=== PATIENT | female | born 1960 | race Caucasian/White ===

== ENCOUNTER 2023-07-25 09:00 | Outpatient (OUT) | payer MEDICARE, SELFPAY ==
[2023-07-25 09:44] LABS: Basophils Absolute Auto 0.1 10^3/uL (0.0-0.1); Basophils Percent Auto 1.1 % (0.2-2.0); Eosinophils Absolute Auto 0.3 10^3/uL (0.0-0.7); Hematocrit 48.6 % (36.0-48.0); Immature Granulocytes Abs Auto 0.02 10^3/uL (0.00-0.03); Immature Granulocytes Pct Auto 0.3 % (0.0-0.5); Lymphocytes Absolute Auto 1.4 10^3/uL (1.2-3.8); Lymphocytes Percent Auto 22.5 % (20.5-60.0); Mean Corpuscular HGB Conc 32.9 g/dL (29.9-35.2); Mean Corpuscular Hemoglobin 30.8 pg (26.7-34.0); Mean Corpuscular Volume 93.6 fL (81.0-99.0); Mean Platelet Volume 10.6 fL (9.5-13.5); Monocytes Absolute Auto 0.5 10^3/uL (0.3-0.8); Monocytes Percent Auto 8.1 % (1.7-12.0); Neutrophils Absolute Auto 3.9 10^3/uL (1.4-6.5); Platelet Count 196 10^3/uL (150-450); Red Blood Count 5.19 10^6/uL (4.20-5.40); Red Cell Distribution Width 13.2 % (11.0-15.0); White Blood Count 6.2 10^3/uL (4.0-11.0)
[2023-07-25 10:23] LABS: Free T4 0.98 ng/dL (0.76-1.46)
[2023-07-25 10:25] LABS: Alanine Aminotransferase 22 U/L (14-59); Albumin Globulin Ratio 1.1; Albumin Level 3.8 g/dL (3.4-5.0); Alkaline Phosphatase 66 U/L (46-116); Anion Gap 12.5; Aspartate Amino Transferase 20 U/L (15-37); BUN Creatinine Ratio 13.6; Bilirubin Total 1.1 mg/dL (0.2-1.0); Calcium 9.3 mg/dL (8.5-10.1); Carbon Dioxide 31.2 mmol/L (21.0-32.0); Chloride 103 mmol/L (98-107); Chol HDL Ratio 1.7; Cholesterol 241 mg/dL (<=200); Estimated GFR (African America >60 (>=60); Estimated GFR (Non-African Ame >60 (>=60); Globulin 3.5 g/dL; Glucose 130 mg/dL (74-106); HDL Cholesterol 141 mg/dL (40-60); Potassium 4.7 mmol/L (3.5-5.1); Sodium 142 mmol/L (136-145); Thyroid Stimulating Hormone 0.756 uIU/mL (0.358-3.740); Total Protein 7.3 g/dL (6.4-8.2); Triglycerides 59 mg/dL (<=150); VLDL CHOLESTEROL 11.8 mg/dL
== END 2023-07-25 09:01 | disposition home or self-care (01) ==
PROVIDERS: PCP Family Medicine; Visit Provider Family Medicine
DX: Z00.00 Encounter for general adult medical examination without abnormal findings (principal); E03.9 Hypothyroidism, unspecified
CPT/HCPCS: 36415; 80053; 80061; 84439; 84443; 85025

== ENCOUNTER 2024-08-20 11:31 | Outpatient (OUT) | payer MEDICARE, SELFPAY ==
--- OUTSIDE RECORDS SUMMARY | 2024-08-20 11:48 | XMS_ITS | CCD ---
Author Organization [facility] [employer] Care Team Providers Care Tag Stringer Name Role Phone LANDY, ANYI Admitting Unavailable HOUSE, ANYI Attending Unavailable HOUSE, ANYI Primary Care Unavailable HOUSE, ANYI Consulting Unavailable PHUONG DENG Primary Care Physician Edwin James Unavailable Phuong Deng Unavailable Medications Current Medications Medication Drug Class(es) Dates Sig (Normalized) Sig (Original) busPIRone hydrochloride 10 mg oral tablet (11 sources) Start: 04-22-2024 take 1 tablet by mouth twice daily Buspirone 10 mg tablet Active 10 MG PO Twice daily 180 April 22, 2024 12:00am Start: 12-10-2023 End: 04-22-2024 take 2 tablets by mouth twice daily Buspirone 5 mg tablet Discontinued 10 MG PO Twice daily 60 January 23, 2024 10:22am April 22, 2024 3:25pm Start: 03-20-2021 take 2 tablets by mo [facility] twice daily busPIRone HCl 5 MG 2 tablets Oral two times daily for 0 days *Pick strength-form from [employer] for eRX* May, Active Start: 03-20-2021 take 1 tablet by christiano three times daily BuSpar 5 MG 1 tablet Orally tid for 90 day(s) Mar, Active ibuprofen 800 mg oral tablet (9 sources) Nonsteroidal Anti-inflammatory Drug Start: 01-30-2021 End: 07-26-2024 take 1 tablet by mouth three times daily as needed for pain Ibuprofen 800 mg tablet Active 800 MG PO Three times daily as needed for Pain 90 July 26, 2024 3:28pm Ibuprofen 800 MG 1 Orally every 8 hrs prn for 90 days Active Ibuprofen Active levothyroxine sodium 0.075 mg oral tablet (11 sources) l-Thyroxine Start: 05-27-2022 take 1 tablet by mouth once daily Levothyroxine 75mcg levothyroxine 75mcg, 1 (one) Tablet daily on an empty stomach # 0, 05/27/2022, No Refill. Active oral daily on an empty stomach *Reorder from [employer] for eRx and Interaction Alerts* May, Active Start: 11-30-2019 End: 07-26-2024 take 1 tablet by mouth once daily Levothyroxine (Synthroid) 75 mcg tablet Active 75 MCG PO Daily July 26, 2024 3:27pm Levothyroxine So dium Active Completed/Discontinued Medications Medication Drug Class(es) Dates Sig (Normalized) Sig (Original) azithromycin 250 mg oral tablet (1 source) Macrolide Antimicrobial Start: 05-14-2024 End: 07-26-2024 Azithromycin 250 mg tablet Discontinued 0 PO daily 6 May 14, 2024 12:00am July 26, 2024 3:13pm Take 2 on day 1 and then take 1 for the next 4 days (days 2-5) LORazepam 0.5 mg oral tablet (7 sources) Benzodiazepine Start: 01-30-2021 End: 05-14-2024 Lorazepam (Ativan) 0.5 mg Tablet Discontinued 0.5 MG PO As Directed January 29, 2021 11:00pm May 14, 2024 10:24am Start: 11-30-2019 take 0.25 mg by mout h once daily as needed for anxiety Ativan 0.5 mg Tab 0.25 mg = 0.5 tab(s), Oral, Daily, PRN as needed for anxiety, Refills(s) 0 Start Date: 11/30/19 Status: Ordered Ativan Active methylPREDNISolone 4 mg oral tablet (1 source) Corticosteroid Start: 05-14-2024 End: 07-26-2024 take 1 tablet by mouth once Methylprednisolone (Medrol (Greyson)) 4 mg tablets,dose pack Discontinued 0 PO per package directions May 14, 2024 12:00am July 26, 2024 3:13pm PO PER PKG DIR temazepam 15 mg oral capsule (2 sources) Benzodiazepine Start: 01-29-2024 End: 05-14-2024 take 1 capsule by mouth once daily at bedtime Temazepam 15 mg capsule Discontinued 15 MG PO Daily at bedtime January 28, 2024 11:00pm May 14, 2024 10:24am [employer] capsule at bedtime as needed Orally Once a day; Note: Source Status: Start; Refills: 0; Qty: 90 Capsule; Provider: Giovanni Baca ( ) Start: 09-30-2022 take 1 capsule by [facility] every twenty-four hours Temazepam 15 MG 1 capsule at bedtime as needed Orally Once a day for 90 days Sep, Active Problems Problem Classification Problem Date Documented Date Episodic/Chronic Anxiety disorders (1 source) Anxiety disorder, unspecified; Translations: [ANXIETY DISORDER UNSPECIFIED] Onset: 02-26-2019 Chronic Esophageal disorders (13 sources) Achalasia of cardia; Translations: [Achalasia] Onset: 02-26-2019 Resolved: 06-18-2021 Episodic Osteoarthritis (1 source) Unspecified osteoarthritis, unspecified site; Translations: [UNSPECIFIED OSTEOARTHRITIS UNS SITE] Onset: 02-26-2019 Chronic Other disorders of stomach and duodenum (7 sources) Other diseases of stomach and duodenum; Translations: [Retained food in stomach] Episodic Other lower respiratory disease (2 sources) Cough; Translations: [Cough] 05-14-2024 Episodic Other screening for suspected conditions (not mental disorders or infectious disease) (3 sources) Encounter for screening mammogram for malignant neoplasm of breast; Translations: [Patient encounter status] Episodic Other upper respiratory infections (4 sources) Chronic sinusitis; Translations: [Chronic sinusitis, unspecified] 05-14-2024 Chronic Residual codes; unclassified (2 sources) Normal body mass index; Translations: [Body mass index (BMI) 22.0-22.9, adult] Episodic Residual codes; unclassified (1 source) Menopause present; Translations: [Asymptomatic menopausal state] 07-26-2024 Episodic Residual codes; unclassified (1 source) Asymptomatic menopausal state; Translations: [Symptomatic menopausal or female climacteric states] 07-26-2024 Episodic Spondylosis; intervertebral disc disorders; other back problems (2 sources) Left side sciatica; Translations: [Sciatica, left side] Episodic Substance-related disorders (2 sources) Tobacco user; Translations: [Nicotine dependence, unspecified, uncomplicated] Chronic Thyroid disorders (8 sources) Acquired hypothyroidism; Translations: [Hypothyroidism, unspecified] Chronic Urinary tract infections (4 sources) Urinary tract infection, site not specified; Translations: [UTI SITE NOT SPECIFIED] Onset: 02-19-2019 Episodic Viral infection (2 sources) Disease caused by 2019-nCoV; Translations: [COVID-19] Results Test Name Value Interpretation Reference Range Facility Coding Summary.on 11-01-2021 Coding Summary. [id number] YHm1wKa+PGhlYWQ+PE1 LPYYrA35liYFcoZ1ZR0 vBIO9LIIHCUAKIPI0DU A7ngFQ4XNskK3CtvqKv IfeluLArCG64FQd7ZAO 4tJkbQVfnpT2xfLWxT7 k2AwXdIR08sM98YTxsZ LEeEkG4EfPgpnzutDNn Q7jkWvSgbSRyZog+PHR hYmxlIHdpZHRoPScxMD BqChBqcRynIZ7oSw0eT GVyLWNvbGxhcHNlOiBj e8kwCCGqFTvzAX4xmNr nG2VekNC7DEWrd6y2No 48dHI+TMCwTOI1hRzzD Wlfz787BwNiu0qbIVU4 oIIrSDzeYOG2W42qy1R 7BIDsBYCyOCW5qAB8iV 8gvPfzlwttZ8OjfOPpH jJ5YXR1vDCsoV9ldCab vpzkvS1qSip+T50JRO6 OXDTIWS4ZTfx3X9QoRh wvdHI+ED54EORyNP67h LRrkYNxu9zdrQy2RuQv RQDqETG5oTcpDVzbf5T vVLDiZ52geHZey2V8IF XxqUtgaIRaZyLvlXH9l Q5kLHaqihkja8uwjhqj Otmwg9jwnb47mY59Z97 hKEpsVGXoZMZ7LTKvZB KrrMuemr7lsA0vLa1+I Hzid4urv2hznQj3RuLp ZZMdglZswVxvJFZ8f5J yUl71C6DaeUssg2FuTu c0kz28hSFhs7U2uHN3H GomGESdpJ9mROphTmK1 ZEZaVoGhpP19fINsVHi kIn9rfBnxwOxiYW2lPO VkosqlQOKnwQ4wDEOjk LWuvRnbMX2wWSMymkze a114IwVwWBA2AGBljVL dN6PqxA4qPbObJRUyPM YxI9KxqPHsDJgzR159Q HeaZvD2LDVtzeLqA5Rc WWOnhAhfEuJ7m8M2Rx2 Ba5TsesbxUIQ4PKzjLP V5TgE6QoOpTyG8D2ZlE jz9GRXchWciPP5xC4Rh AHAwpjundtxptPN1HUZ bDISzfE84nDTjMWvdDu 0kw0N8e997YEPdMZGdb Z86Za2jgKlwMEFxxSQU sF9dzcbvv9lybnriSdP jOMPtFMw2IKn2OEBtbV vzCsCzWCL1VgA1NEU3u MYxhZ2ufUgjxcofaB8n Oyc+Q27hkN8zJFE4EAY 2jikaTEWoefUpDE54OB 94G4XnSocfzZJftZJ+P RDvpeGlvLfpXK7tTnEr d8oso2JzLDuqE9RmTZJ eCCahTgr7ICUeLKY8aY K2uB9sUPOcIVkyl6W1b CD6A3LttqLmco2kq3ll ZBVhRDecX41whIGiv6K 5VLMosEY1EVLbkQvnZs VsvA02Agq+PGNvbGdyb 1NoNxerz6yea7tntWe4 IjMwJSIgdmFsaWduPSJ 7t4CnPx81Z50xHVgaYB RoPSIxNSUiIHZhbGlnb n5bmF7tAt1+PGNvbCB3 gXO2gG7uDUMwEiU5CAw jG048ZwHclCZbXczwa8 vmr1ejvVq7DxVzEUAht dErqMxhBBT9u1TcDg87 F98gWGeuFJFiCOTzQKH cBJNjbTziel7mtR4aVk 8+UV2xh1dygw50rA92n HI+JKRnLJD7hAeyDThc ALZpzZ8gFWisEtL8PRX vCsXbtC19tTHvWAepFc 6skQgsaBqtKF8iVCSnr jqaz020QsAnx2kkUIBo yIPlQOdnBBC8X12wt2D 3KUZqBJAdMDW9oAJ9lQ 1hbGlnbjogbGVmdDsgd yAsuForWFneFSjzF335 IHRvcDsnPlBhdGllbnQ uEiQxAGw9Z0DnGyc5LH OmzFujTY8uvKUlDWhjD d9roSrsnSesWG6rOOSf qrnky372EjGtt8odNQO aySPtVHufBRR2L06bo6 T5ZXUuZVStOZA6dIZ2r P7bxLkspomwzDJupJry iaPwuPkzURgiDXycK33 6IHRvcDsnPkJpcnRoIE OjsVD9RV39YW34tOExl 3A1gWI3S9NqXFBwczho iaffeCG6ZRTwVKSyhJ9 5Gf0hyKbdXn0uSFZkLN W6HTJrfWUpH8NmyC2kC oHdAUJjTYCcZ2RtiDVz SYadS326OVgaHwH4CFS jusOaU4YiGOUiaHdySt R6n2N7Na0ZT8C7KF93U M05pDXmk0N8nQH2B1Iq NCQmsandvpozjRD2SIU zAGTvyE59Fc6lbEtkQb 2cXBAeSQV1OILmoBNwH 2SgvC7mIzKqPJWvFLEn W1GzrXXpLKcxE809LEw tSxL2GGNwmeLdA4ZbHJ CdpLdyVhD5v2V3Eq8DW Sj5QX06HQ35qLUgo3F2 cVN0N6JvZPGpxyktujg hxZR7KAGfTORdtJ35La 6oxVlwWa6jTZUpCOA9A TNfcZDtQ0QqyB6mDwGg EUQzQGNfU8QotTZySJa cK563HZhaEwJ6XYQtst UaH6ViNTQvgLzbEaG0p 5N4Lh6ITRZtCR00VYL7 fWU0TM84TC13X4SzTep vdGFibGU+PHRhYmxlIH dpZHRoPScxMDAlJyBzd ZeyIK5aLt9zZXSiWPFv cVcbtISxJiWoj6etCLS eGBzbQV4umFkpK1FnnC X9JMUju3o1Vg35V90qJ 3JvdXA+HICrfDC3nJX9 hM0rHcDsQgJ5KLzyX24 1NfAwtWLgRpqjr1rul4 mybBq2QjL7PBQbvfFgl KvoCVY9n5AzNl65I39y IHdpZHRoPSIxNSUiIHZ mpOdmiu4pwS2vRg6+PG GdzPZ2fEB6qU4qRfZiY dP3GNudP412SyBmqOLk Vtdmp3ubq6geuAg2JeM uIBGoeaPkkMrjKSQ5h1 BbGo08U1VtiHmup6IqD yp3al46uBCkw0W6gPD9 U8WxLRJxtyxbdNFagMi cAN9zJKGnrucdSTQesJ 2bNEAvC5f6GyRmWxG7I VbyS7EeipP6IMJmvFYw VFisNPC4U39bf4J8WMB eDXPtRLL6wZS9yZ2mhK lnbjogbGVmdDsgdmVyd KsyVUkyUNupF145QNJi aUbqQAGrnC8dIVOpxPN itPghMC6wNOUhdujeHa JRF5aYZnbiH7ELHVi3P 0XsNrh0HEBxbUqmNR9x eCDcZZeaJs2zwUeozSo tQV7mBLKktrvtQQIyhZ 4uYXHvpNPvtIonAQ6kP AAboelyy307GwInKJH4 JVMugMHfA9TjmR2vVxP jOPDcYUAeC6HiiKWpVY yiV446ZSctXeM5UEIjp hCpN8HdUQKpkSdzOtI8 k0K1Nl4eFR2tDG1oWFD 1QX87JN53vCIkb8K0xM P1R5DhIGAtjdyzqfmpa RS6WMHrWOUiwQ87rITp PBooLj0wt5A1o867KSM aZHQniJ71Mq3kyUfzQX OhvOIScO3oqnagc8pno qusPjSmADRvYJm8CYx3 OJAdzWkeNzJiMTW6NuX 2NQN5pYJhrK2tbEheyd tqrJ1vZcx+NjMgWWVhc fR2P9ZrBfw8WIKlzFed FA1gtNOcABzrXe7ioDe wcPtjMG5bZTOemhjpCP PgvU1fVUNlaVBylDdrB R9kQXFyedlzh006VkHp LHV2JFHkuEZqJ1XpwE7 pVzRoHMYwJFQaR4LdfO YvIBnvW593RQvcDmV6X KCxxwNyG2MqKNVdoBuf OnP2y5D4Dm5LFU3ewJU 3O8XyBny1KZPmtQazFW 2asFKcDCjvOe4epAjbm WxyDH6wOEMdfudnJFAu cZ5uENOosFUvcMqcOS8 oBLNzhjcds505BhYuUD L0ZSOgfITfL7LarR5fB qHkAYWhOTRoB6MdrTXf QNctY180SRtoFdI3FHA unoMaJ5UrKENbuSzcSl L5r1T9Iq5XjLGdTZCbY F70VV36TI93F2YvEcpj dGFibGU+PHRhYmxlIHd pZHRoPScxMDAlJyBzdH wrVW4xPx8fLTYoQQKlm XqaaVRzGiTqg6uoWHIo AIqhFI7snGtkQ3EfkMQ 4GHSle7n7Jr99O53pC3 JvdXA+TRIffNU1bYG4s Q0vOpKzSjY5TAkgL955 QbCovKPoKflra1dju0x vrPq9ToPzBEUnoaAehY qaDBT3j0WeBq44X94dU HdpZHRoPSIyMCUiIHZh pYygae6vcE6yXr4+PGN mzDH0hMI4gN7dOoSiNz U3ZYmxG893VoXpxDBiR zczJ20bA2KwkDR+PHRy Xpd5EXAqbEfiSJ1nuFG oXAqqIk1uEKJ4OsSwDz HkQFpkL5VxDOJfwjwua djgbIR3RTGlALAozO33 Qq1bdQmxHi0lOWZiXPC 9QNMneLFpF6VlcK9bIk ZiRQWtJHVmN9JwmJDfS XxqC019POqvOkL3KEGt owEgE4ViHMJxnSibMnB 1s5H1Bg7HoXpnbMNvZN 0fGyJjGKh8Q2JlAtb7N TYfyHgpBA7uiAZyOVrq Rk3bdXuepTwsPQ7tZVX zxtcef692StYja9ftVM MemFQuOSneKZP6W38kw 2B7TGHlYCKjECW6gWO0 uT2eqNmzecuvdNYlqZu gdmVydGljYWwtYWxpZ2 96IBBgtYspWhUTSnk3P 5EjMmo0PQZgbLdpSE1e zTRvLEicNo3nlPmbeLk iSZ7aSJQkfxoho385Ly Wfj0wmOREerZEzYSxnF YT9G12zj9P4HZFuRLHq WPM4aIS5wE0ooVavuot gbGVmdDsgdmVydGljYW ryVXpzL473SKNmlYkwI j9FUcd2B2AgGmh5SJIx jBmdIB6kwLTeHTkkDx8 fzLbrcEjiOQ3sXUDaeo her855LsExl7gxLZTqz GMfOCkzTWK5Z25dm0S4 KDQsSBUnBBL0rFT2kF2 hbGlnbjogbGVmdDsgdm SthLdpSCtkJEvvA377S HRvcDsnPlBheWVyOjwv dGQ+NK16nt84O4WdSfk mBad5WTVxXWS3aAM1dU 3pNTRuAMfjo1V5aPI7H 5NfbwYnjg8nr4ptCAAw ZTog (more content not included)... Normal [facility] MA Mamm Screen w/CAD if perf and 3D Bilon 10-25-2021 MA Mamm Screen w/CAD if perf and 3D Juan Carlos Exam Date/Time: 10/22/2021 07:44 EDT Reason for Exam: SCREENING Report IMPRESSION: BIRADS 1 NEGATIVE, NORMAL INTERVAL FOLLOW-UP.12 MONTH RECALL. CLINICAL HISTORY: SCREENING. COMPARISON: 09/28/2014. COMMENT: Routine views and tomosynthesis views of both breasts were obtained. The breasts are heterogeneously dense, which may obscure small masses. No dominant breast mass nor neoplastic calcifications are noted. There has been no significant change when compared to the prior exam. The examination was reviewed with Computer Aided Detection. Breast Density: Yes Mammography is very important to your health. The current [employer] and National [employer] Network guidelines recommends annual mammography beginning at age 40. This facility utilizes a reminder system to ensure all patients receive reminder notifications at the appropriate time based on the recommendations of this exam. Board Certified Radiologists. Accredited by the ACR and FDA. FINAL REPORT Dictated: 10/25/2021 2:32 pm Tobias Dolan M.D. Signed (Electronic Signature): 10/25/2021 2:32 pm Signed by: Tobias Dolan M.D. Transcribed by: KENNY Technologist: [facility] Assessment: BI-RADS Category 1-Negative Recommendation: Normal interval follow-up Normal [facility] Auto Diffon 10-22-2021 Basophils/100 WBC (Bld) 1.2 % Normal 0.0-2.0 [facility] Comment on above: Order Comment: Order Added by Discern Expert. Performed By: #### 2 [id number], 0980717, 2001602, 7452041, 0811865, 2484522, [id number] #### [facility] [address] [place] [address] 24684 Basophils/Leukocytes Auto (Bld) [Pure # fraction] 0.1 E9/L Normal 0.0-0.2 [facility] Comment on above: Order Comment: Order Added by Discern Expert. Performed By: #### 2 728162, 8947193, 2185039, 6805558, 7836967, 1306093, [id number] #### [facility] [address] [place] [address] 42024 Eosinophils/100 WBC (Bld) 7.1 % Normal 0.0-8.0 [facility] Comment on above: Order Comment: Order Added by David Expert. Performed By: #### 2 578642, 4992815, 0883229, 5694636, 1799962, 3162595, [id number] #### [facility] [address] [place] [address] 36915 Eosinophils/Leukocyte s Auto (Bld) [Pure # fraction] 0.5 E9/L Normal 0.0-0.5 [facility] Comment on above: Order Comment: Order Added by Discern Expert. Performed By: #### 2 230641, 6705875, 4850439, 9747048, 2056338, 1116704, 58939059 #### [facility] [address] [place] [address] 50392 Lymphocytes/100 WBC (Bld) 28.0 % Normal 14.0-50.0 [facility] Comment on above: Order Comment: Order Added by Discern Expert. Performed By: #### 2 121969, 5557716, 6891974, 3406008, 4893968, 5468709, 74282678 #### [facility] [address] [place] [address] 63096 Lymphocytes/Leukocyte s Auto (Bld) [Pure # fraction] 1.8 E9/L Normal 1.0-4.0 [facility] Comment on above: Order Comment: Order Added by Discern Expert. Performed By: #### 2 463489, 8200720, 1346543, 1051574, 8720483, 8273147, 51082493 #### [facility] [address] [place] [address] Monocytes/100 WBC (Bld) 9.0 % Normal 4.0-14.0 [facility] Comment on above: Order Comment: Order Added by Discern Expert. Performed By: #### 2 180700, 5512949, 1107137, 5805102, 0220258, 4678728, 55089630 #### [facility] [address] [place] [address]307 Monocytes/Leukocytes Auto (Bld) [Pure # fraction] 0.6 E9/L Normal 0.2-1.0 [facility] Comment on above: Order Comment: Order Added by Discern Expert. Performed By: #### 2 827192, 9051568, 7250406, 7400426, 1493799, 1416107, 52478830 #### [facility] [address] [place] [address] 10355 Neutrophils/100 WBC (Bld) 54.7 % Normal 36.0-75.0 [facility] Comment on above: Order Comment: Order Added by Discern Expert. Performed By: #### 2 284051, 0315160, 5589652, 6601458, 7584078, 1281720, 48711134 #### [facility] [address] [place] [address] 45119 Neutrophils/Leukocyte s Auto (Bld) [Pure # fraction] 3.5 E9/L Normal 2.0-7.5 [facility] Comment on above: Order Comment: Order Added by Discern Expert. Performed By: #### 2 277629, 5210375, 7070181, 0838763, 9278251, 4513070, [id number] #### [facility] [address] [place] [address] 61283 CBC w/ Auto Diffon 2 Erythrocyte distribution width (RBC) [Ratio] 13.8 % Normal 10.9-14.2 [facility] Comment on above: Performed By: #### 2 561980, 2191581, 3784958, 1542085, 5907422, 9543169, 96592676 #### [facility] [address] [place] [address] Hematocrit (Bld) [Volume fraction] 44.0 % Normal 34.0-46.0 [facility] Comment on above: Performed By: #### 2 055959, 4013707, 9927421, 8749586, 1561788, 2183749, 04775646 #### [facility] [address] [place] [address] Hemoglobin (Bld) [Mass/Vol] 15.2 g/dL Normal 12.0-16.0 [facility] Comment on above: Performed By: #### 2 723771, 8076195, 5497432, 5777575, 7578240, 6944889, 79501201 #### [facility] [address] [place] [address] MCH (RBC) [Entitic mass] 31.2 pg Normal 27.0-34.0 [facility] Comment on above: Performed By: #### 2 550112, 4890569, 3255846, 9704746, 0828810, 6020908, 30671334 #### [facility] [address] [place] [address] 19141 MCHC (RBC) [Mass/Vol] 34.6 g/dL Normal 31.4-36.0 [facility] Comment on above: Performed By: #### 2 515606, 5526638, 3313081, 4374114, 0569763, 4849431, 80461789 #### [facility] [address] [place] [address] MCV (RBC) [Entitic vol] 90.2 fL Normal 80.0-100.0 [facility] Comment on above: Performed By: #### 2 755450, 1289992, 6728201, 9997397, 7765887, 6374398, 47448544 #### [facility] [address] [place] [address] Platelet mean volume (Bld) [Entitic vol] 9.2 fL Normal 6.4-10.8 [facility] Comment on above: Performed By: #### 2 138507, 2707734, 1868279, 6724528, 9198155, 9409492, 85033923 #### [facility] [address] [place] [address] Platelets (Bld) [#/Vol] 182.0 E9/L Normal 150.0-500.0 [facility] Comment on above: Performed By: #### 2 727957, 0042011, 7826215, 8022880, 0467336, 1363579, 17907285 #### [facility] [address] [place] [address] RBC (Bld) [#/Vol] 4.9 E12/L Normal 4.3-5.9 [facility] Comment on above: Performed By: #### 2 008701, 8438941, 6340305, 3050738, 8551754, 6639437, 67507640 #### [facility] [address] [place] [address] WBC corrected for nucl RBC Auto (Bld) [#/Vol] 6.4 E9/L Normal 4.0-11.0 [facility] Comment on above: Performed By: #### 2 145342, 0425063, 7922896, 0553137, 0882388, 8460637, 80764949 #### [facility] [address] [place] [address] CHEMISTRYOrdered By: SYSTEM SYSTEM on 10-22-2021 Albumin [Mass/Vol] 4.1 g/dL Normal 3.3 - 5.0 gm/dL [facility] Albumin/Globulin [Mass ratio] 1.5 {ratio} Normal 1.1 - 2.2 [facility] ALP [Catalytic activity/Vol] 55 [iU]/d Normal 21 - 98 Int._Unit/L [facility] ALT No additional P-5'-P [Catalytic activity/Vol] 15 [iU]/d Normal 6 - 46 Int._Unit/L [facility] Anion gap [Moles/Vol] 15 mmol/L Normal 6 - 16 mEq/L [facility] AST [Catalytic activity/Vol] 17 [iU]/d Normal 5 - 43 Int._Unit/L [facility] Bilirubin [Mass/Vol] 1.3 mg/dL High 0.0 - 1 .1 mg/dL [facility] Calcium [Mass/Vol] 9.3 mg/dL Normal 8.9 - 11. 1 mg/dL [facility] Chloride [Moles/Vol] 103 mmol/L Normal 101 - 1 11 mmol/L [facility] Cholesterol [Mass/Vol] 252 mg/dL High 120 - 200 mg/dL [facility] Cholesterol in HDL [Mass/Vol] 134 mg/dL Invalid Interpretation Code [facility] Cholesterol in LDL [Mass/Vol] 97 mg/dL Normal <=129mg/dL [facility] Cholesterol in VLDL [Mass/Vol] 11 mg/dL Normal 7 - 40 mg/dL [facility] CO2 [Moles/Vol] 27 mmol/L Normal 21 - 31 mmol/L [facility] Creatinine [Mass/Vol] 0.6 mg/dL Normal 0.5 - 1.3 mg/dL [facility] Free T4 [Mass/Vol] 0.93 ng/dL Normal 0.58 - 1. 64 ng/dL [facility] GFR/1.73 sq M.predicted among blacks MDRD (S/P/Bld) [Vol rate/Area] mL/min/1.73 m2 Normal >=59mL/min/1. 73 m2 [facility] Chem S GFR/1.73 sq M.predicted among non-blacks MDRD (S/P/Bld) [Vol rate/Area] mL/min/1.73 m2 Normal >=59mL/min/1. 73 m2 [facility] Chem S Globulin (S) [Mass/Vol] 2.8 g/dL Normal 1.4 - 4.0 gm/dL [facility] Glucose [Mass/Vol] 109 mg/dL Normal 55 - 199 mg/dL [facility] Potassium [Moles/Vol] 4.6 mmol/L Normal 3.5 - 5.3 mmol/L [facility] Remisol Protein [Mass/Vol] 6.9 g/dL Normal 6.0 - 7.8 gm/dL [facility]isol Sodium [Moles/Vol] 140 mmol/L Normal 135 - 145 mmol/L [facility] Triglyceride [Mass/Vol] 56 mg/dL Normal <=149mg/dL [facility] TSH Qn 1.07 m[IU]/L Normal 0.34 - 5.60 mcIU/mL [facility] Rem[facility] Urea nitrogen [Mass/Vol] 15 mg/dL Normal 5 - 21 mg/dL [facility] Remisol Urea nitrogen/Creatinine [Mass ratio] 25 mg/mg High 10 - [facility] Remisol CMPon 10-22-2021 Albumin [Mass/Vol] 4.1 g/dL Normal 3.3-5.0 [facility] Comment on above: Performed By: #### 2 [id number], [id number], 1358169, 5569134, 1055262, 6782550, [id number] #### [facility] [address] [place] [address] Albumin/Globulin (S) [Mass conc ratio] 1.5 Normal 1.1-2.2 [facility] Comment on above: Performed By: #### 2 [id number], 8978722, 6802747, 7161770, 1509926, 4064539, [id number] #### [facility] [address] [place] [address] ALP [Catalytic activity/Vol] 55 Int._Unit/L Normal 21-98 [facility] Comment on above: Performed By: #### 2 789407, 8672109, 7376419, 5664430, 5374294, 4230179, 11367429 #### [facility] [address] [place] [address] ALT No additional P-5'-P [Catalytic activity/Vol] 15 Int._Unit/L Normal 6-46 [facility] Comment on above: Performed By: #### 2 369889, 7278151, 4628166, 8065883, 7167897, 7770617, 83211737 #### [facility] [address] [place] [address] Anion gap [Moles/Vol] 15 mmol/L Normal 6-16 [facility] Comment on above: Performed By: #### 2 116791, 4594608, 4959408, 9448868, 2439147, 8144939, [id number] #### [facility] [address] [place] [address] AST [Catalytic activity/Vol] 17 Int._Unit/L Normal 5-43 [facility] Comment on above: Performed By: #### 2 529528, 7765434, 9075945, 5738803, 4098926, 6673854, 55822983 #### [facility] [address] [place] [address] Bilirubin [Mass/Vol] 1.3 mg/dL High 0.0-1.1 [facility] Comment on above: Performed By: #### 2 356428, 0671493, 3517651, 2194098, 1132781, 7006310, 50260827 #### [facility] [address] [place] [address] Calcium [Mass/Vol] 9.3 mg/dL Normal 8.9-11.1 [facility] Comment on above: Performed By: #### 2 387747, 1299860, 1854249, 9601458, 0150074, 4424330, 59681635 #### [facility] [address] [place] [address] Chloride [Moles/Vol] 103 mmol/L Normal 101-111 [facility] Comment on above: Performed By: #### 2 833045, 7418689, 0295249, 6999084, 5764400, 1177173, 58446960 #### [facility] [address] [place] [address] CO2 [Moles/Vol] 27 mmol/L Normal 21-[address] [facility] Comment on above: Performed By: #### 2 050514, 1830477, 6842213, 9576981, 0895500, 2231608, 57693019 #### [facility] [address] [place] [address] Creatinine [Mass/Vol] 0.6 mg/dL Normal 0.5-1.3 [facility] Comment on above: Performed By: #### 2 517846, 0729021, 7689077, 0442443, 7617956, 1615316, 60570205 #### [facility] [address] [place] [address] Globulin (S) [Mass/Vol] 2.8 g/dL Normal 1.4-4.0 [facility] Comment on above: Performed By: #### 2 170966, 8570432, 6785696, 3173640, 4180432, 0069395, 91459872 #### [facility] [address] [place] [address] Glucose [Mass/Vol] 109 mg/dL Normal 55-199 [facility] Comment on above: Result Comment: If t his glucose result represents a fasting glucose, interpretation should refer to the following reference range: 55-99 mg/dL Performed By: #### 2 121091, 2168796, 6280949, 8398561, 0407374, 0808851, [id number] #### [facility] [address] [place] [address] Potassium [Moles/Vol] 4.6 mmol/L Normal 3.5-5.3 [facility] Comment on above: Performed By: #### 2 332000, 3412514, 7499135, 8023434, 8887016, 1110420, [id number] #### [facility] [address] [place] [address] Protein [Mass/Vol] 6.9 g/dL Normal 6.0-7.8 [facility] Comment on above: Performed By: #### 2 237797, 9664595, 7313890, 0314423, 2692419, 4407422, 03105765 #### [facility] [address] [place] [address] Sodium [Moles/Vol] 140 mmol/L Normal 135-145 [facility] Comment on above: Performed By: #### 2 874699, 2133135, 1132750, 2654249, 6861320, 7359117, 39999381 #### [facility] [address] [place] [address] Urea nitrogen [Mass/Vol] 15 mg/dL Normal 5-21 [facility] Comment on above: Performed By: #### 2 116331, 3407760, 3682611, 4324314, 0349875, 9181646, 32115569 #### [facility] [address] [place] [address] Urea nitrogen/Creatinine [Mass ratio] 25 No Units High 10-20 [facility] Comment on above: Performed By: #### 2 629871, 4465424, 6703776, 9037717, 7847720, 4408877, 94772353 #### [facility] [address] [place] [address] Consent for Treatmenton Consent for Treatment [id number]#[id number]:127 Normal [facility] Free T4on 10-22-2021 Free T4 [Mass/Vol] 0.93 ng/dL Normal 0.58-1.64 [facility] Comment on above: Performed By: #### 2 694809, 0987399, 4274697, 6308749, 1180058, 2907954, [id number] #### [facility] [address] [place] [address] HEMATOLOGYOrdered By: SYSTEM SYSTEM on 10-22-2021 Basophils/100 WBC (Bld) 1.2 % Normal 0.0 - 2.0 % [facility] Basophils/Leukocytes Auto (Bld) [Pure # fraction] 0.1 E9/L Normal 0.0 - 0.2 E9/L [facility] Eosinophils/100 WBC (Bld) 7.1 % Normal 0.0 - 8.0 % [facility] Eosinophils/Leukocyte s Auto (Bld) [Pure # fraction] 0.5 E9/L Normal 0.0 - 0.5 E9/L [facility] Lymphocytes/100 WBC (Bld) 28.0 % Normal 14.0 - 50.0 % [facility] Lymphocytes/Leukocyte s Auto (Bld) [Pure # fraction] 1.8 E9/L Normal 1.0 - 4.0 E9/L [facility] Monocytes/100 WBC (Bld) 9.0 % Normal 4.0 - 14.0 % [facility] Monocytes/Leukocytes Auto (Bld) [Pure # fraction] 0.6 E9/L Normal 0.2 - 1.0 E9/L [facility] Neutrophils/100 WBC (Bld) 54.7 % Normal 36.0 - 75.0 % [facility] Neutrophils/Leukocyte s Auto (Bld) [Pure # fraction] 3.5 E9/L Normal 2.0 - 7.5 E9/L [facility] HEMATOLOGYOrdered By: Cassandra Jackson on 10-22-2021 Erythrocyte distribution width (RBC) [Ratio] 13.8 % Normal 10.9 - 14.2 % [facility] Hematocrit (Bld) [Volume fraction] 44.0 % Normal 34.0 - 46.0 % [facility] Hemoglobin (Bld) [Mass/Vol] 15.2 g/dL Normal 12.0 - 16.0 gm/dL [facility] MCH (RBC) [Entitic mass] 31.2 pg Normal 27.0 - 34.0 pg [facility] MCHC (RBC) [Mass/Vol] 34.6 g/dL Normal 31.4 - 36.0 gm/dL [facility] MCV (RBC) [Entitic vol] 90.2 fL Normal 80.0 - 100.0 fL [facility] Platelet mean volume (Bld) [Entitic vol] 9.2 fL Normal 6.4 - 10.8 fL [facility] Platelets (Bld) [#/Vol] 182.0 E9/L Normal 150.0 - 500.0 E9/L [facility] RBC (Bld) [#/Vol] 4.9 E12/L Normal 4.3 - 5.9 E12/L [facility] WBC corrected for nucl RBC Auto (Bld) [#/Vol] 6.4 E9/L Normal 4.0 - 11.0 E9/L [facility] Lipid Panelon 10-22-2021 Cholesterol [Mass/Vol] 252 mg/dL High 120-200 [facility] Comment on above: Performed By: #### 2 973889, 1823667, 3731716, 1713303, 3235072, 3835470, 29465934 #### [facility] [address] [place] [address] Cholesterol in HDL [Mass/Vol] 134 mg/dL Invalid Interpretation Code [facility] Comment on above: Result Comment: HDL > or equal to 60 mg/dL: Low cardiovascular risk HDL < 40 mg/dL : High cardiovascular risk Performed By: #### 2 468840, 4816181, 2121159, 2346530, 1596867, 9043052, 39702688 #### [facility] [address] [place] [address] Cholesterol in LDL [Mass/Vol] 97 mg/dL Normal <=129 [facility] Comment on above: Performed By: #### 2 034554, 2978891, 8299856, 5214927, 4792688, 7238633, 08267242 #### [facility] [address] [place] [address] Cholesterol in VLDL [Mass/Vol] 11 mg/dL Normal 7-40 [facility] Comment on above: Performed By: #### 2 823748, 0459668, 2750443, 5096334, 1383109, 9194128, 39371543 #### [facility] [address] [place] [address] Triglyceride [Mass/Vol] 56 mg/dL Normal <=149 [facility] Comment on above: Performed By: #### 2 366129, 6493470, 3674841, 3432139, 5817711, 9258310, 43333054 #### [facility] [address] [place] [address] Physician Orderon 10-22-2021 Physician Order [id number]:127 Normal [facility] TSHon 10-22-2021 TSH Qn 1.07 m[IU]/L Normal 0.34-5.60 [facility] Comment on above: Performed By: #### 2 357098, 6896418, 3027523, 1352802, 2449181, 1480873, 31556581 #### [facility] [address] [place] [address] eGFRon 10-22-2021 GFR/1.73 sq M.predicted among blacks MDRD (S/P/Bld) [Vol rate/Area] mL/min/{1.73_m2} Normal >=59 [facility] Comment on above: Order Comment: Order added by Discern Expert. Result Comment: eGFR is race adjusted. AA=. Performed By: #### 2 889230, 8820926, 5195877, 0796910, 3668034, 0695691, 78776969 #### [facility] [address] [place] [address] GFR/1.73 sq M.predicted among non-blacks MDRD (S/P/Bld) [Vol rate/Area] mL/min/{1.73_m2} Normal >=59 [facility] Comment on above: Order Comment: Order added by Discern Expert. Result Comment: Client Analyst beatrice kidney disease could be indicated at eGFR's of less than 60 mL/min/1.73m2. Kidney failure is indicated at less than 15 mL/min/1.73m2. Performed By: #### 2 391412, 0345956, 5837548, 7849720, 3999456, 7554996, 67135424 #### [facility] [address] [place] [address] FL esophagus ugion 1 [place] esophagus ugi [facility] Main [address] [address] Fluoroscopy Report Signed Patient: Gisele Chisholm MR#: [id number] : 1960 Acct:[id number] Age/Sex: 61 / F ADM Date: 03/13/21 Loc: XD Room: Type: REG CLI Attending Dr: Edwin James MD Ordering Provider: Edwin James MD Date of Service: 03/13/21 FL/FL esophagus ugi: Achalasia Copies to: Edwin James MD UPPER GI SERIES WITH ESOPHAGRAM HISTORY: Epigastric pain intermittently. History of achalasia FINDINGS: The valleculae and perform sinuses are symmetrical. There is dilatation of the esophagus without mucosal abnormality or fixed intraluminal filling defect. No significant stricture identified. Moderate hiatal hernia seen. No reflux of contrast into the esophagus. No aspiration of contrast seen. No gastric mass or ulceration. The duodenal bulb and sweep are unremarkable. Significant stasis of esophageal contrast. Decreased esophageal dysmotility identified. IMPRESSION distention of the esophagus consistent with patient's history of achalasia. Stasis of contrast within the esophagus. No esophageal mucosal abnormality or significant narrowing. Moderate hiatal hernia. Otherwise unremarkable stomach and duodenal bulb and sweep. Impression dictated by: Hussein Pate M.D.03/13/2021 11:50 AM Dictation Location: [place] [address] Transcribed By: [facility] 03/13/21 1150 Dictated By: Hussein Pate DO 03/13/21 1143 Signed By: 03/13/21 1150 Normal [facility] NM gastric emptying studyon 02-23-2021 NM gastric emptying study [facility] [place] [address] Nuclear Medicine Report Signed Patient: Gisele Chisholm MR#: [id number] : 1960 Acct:[id number] Age/Sex: 60 / F ADM Date: 02/23/21 Loc: NM Room: Type: REG CLI Attending Dr: Edwin James MD Ordering Provider: Edwin James MD Date of Service: 02/23/21 NM/NM gastric emptying study: Retained food in stomach Copies to: MD Edwin Sanchez MD Marcia E Braun, MD GASTRIC EMPTYING STUDY: CLINICAL HISTORY: Abdominal pain, nausea, vomiting and reflux. History of achalasia. Gastric retention on recent EGD. COMPARISON: None Following the oral ingestion of 1.1 mCi Tc 99m labeled sulfur colloid mixed with oatmeal, anterior imaging of the abdomen was performed out to 90 minutes. There is a comma-shaped structure convex to the right extending to the top of the [id number] that was imaged which contains radionuclide. There is a gap before small bowel loops are seen. It is unclear if this is a dilated esophagus containing the oatmeal given the history of achalasia. Situs inversus is possible though thought less likely. There are however no other prior studies for correlation. The region of interest was placed over the questioned dilated distal esophagus. A flat time/activity curve was generated. The T1/2 for emptying was calculated at 159 minutes. NM/NM gastric emptying study IMPRESSION: QUESTION OF A DILATED ESOPHAGUS CONTAINING THE RADIOACTIVE MATERIAL WITH POOR CLEARANCE, DESCRIBED. SINCE THERE ARE NO PRIOR STUDIES FOR CORRELATION AND SINCE THERE IS REPORTED HISTORY OF EGD, CORRELATION WILL BE NEEDED. Impression dictated by: Vi Chavez M.D.02/23/2021 11:06 AM Dictation Location: [place] [address] Transcribed By: [facility] 02/23/21 1106 Dictated By: Vi Chavez MD 02/23/21 1058 Signed By: 02/23/21 1106 [facility] CBC AUTO DIFFon 02-19-2019 Basophils (Bld) [#/Vol] 0.1 103/ul Normal 0.0-0.1 [facility] Comment on above: Performed By: #### C BC #### [facility] [address] [place], [place] [address] Noel Vi Basophils/100 WBC (Bld) 0.9 % Normal 0.2-2.0 [facility] Comment on above: Performed By: #### C BC #### [facility] [address] [place], [place] [address] Noel Vi Eosinophils (Bld) [#/Vol] 0.4 103/ul Normal 0.0-0.7 [facility] Comment on above: Performed By: #### C BC #### [facility] [address] [place], [place] [id number] Noel Vi Eosinophils/100 WBC (Bld) 5.5 % Normal 0.9-7.0 [facility] Comment on above: Performed By: #### C BC #### [facility] [address] [place], [place] [address] Noel Vi Erythrocyte distribution width (RBC) [Ratio] 12.6 % Normal 11.0-15.0 [facility] Comment on above: Performed By: #### C BC #### [facility] [address] [place], [place] [address] Noel Vi Hematocrit (Bld) [Volume fraction] 47.1 % Normal 36.0-48.0 [facility] Comment on above: Performed By: #### C BC #### [facility] [address] [place] [address] Noel Vi Hemoglobin (Bld) [Mass/Vol] 15.8 g/dL Normal 12.0-16.0 [facility] Comment on above: Performed By: #### C BC #### [facility] [address] [place], [place] [address] Noel Vi IG # 0.01 10e3/ul Normal 0.00-0.03 [facility] Comment on above: Performed By: #### C BC #### [facility] [address] [place], [place] [address] Noel Vi IG % 0.1 % Normal 0.0-0.5 [facility] Comment on above: Performed By: #### C BC #### [facility] [address] [place], [place] [id number] Noel Vi Lymphocytes (Bld) [#/Vol] 2.1 103/ul Normal 1.2-3.8 [facility] Comment on above: Performed By: #### C BC #### [facility] [address] [place], [place] [address] Noel Vi Lymphocytes/100 WBC (Bld) 27.3 % Normal 20.5-60.0 [facility] Comment on above: Performed By: #### C BC #### [facility] [address] [place] [id number] Noel Lebron MANUAL DIFF REQ NO Normal [facility] Comment on above: Performed By: #### C BC #### [facility] [address] [place] [id number] Noelrenato Lebron MCH (RBC) [Entitic mass] 30.5 pg Normal 26.7-34.0 [facility] Comment on above: Performed By: #### C BC #### [facility] [address] [place] [id number] Noelrenato Lebron MCHC (RBC) [Mass/Vol] 33.5 g/dL Normal 29.9-35.2 [facility] Comment on above: Performed By: #### C BC #### [facility] [address] [place], [place] [id number] Noelrenato Lebron MCV (RBC) [Entitic vol] 90.9 fL Normal 81.0-99.0 [facility] Comment on above: Performed By: #### C BC #### [facility] [address] [place], [place] [id number] Noel Vi Monocytes (Bld) [#/Vol] 0.6 103/ul Normal 0.3-0.8 [facility] Comment on above: Performed By: #### C BC #### [facility] [address] [place], [place] [address] Noel Vi Monocytes/100 WBC (Bld) 7.5 % Normal 1.7-12.0 [facility] Comment on above: Performed By: #### C BC #### [facility] [address] [place], [place] [id number] Noel Vi Neutrophils (Bld) [#/Vol] 4.5 103/ul Normal 1.4-6.5 [facility] Comment on above: Performed By: #### C BC #### [facility] [address] [place], [place] [address] Noel Vi Neutrophils/100 WBC (Bld) 58.7 % Normal 43.0-75.0 [facility] Comment on above: Performed By: #### C BC #### [facility] [address] [place], [place] [address] Noel Vi Platelet mean volume (Bld) [Entitic vol] 10.7 fL Normal 9.5-13.5 [facility] Comment on above: Performed By: #### C BC #### [facility] [address] [place], [place] [address] Noel Vi Platelets (Bld) [#/Vol] 176 103/ul Normal 150-450 [facility] Comment on above: Performed By: #### C BC #### [facility] [address] [place] [address] Noel Vi RBC (Bld) [#/Vol] 5.18 106/ul Normal 4.20-5.40 [facility] Comment on above: Performed By: #### C BC #### [facility] [address] [place] [address] Noel Vi WBC (Bld) [#/Vol] 7.6 103/ul Normal 4.0-11.0 [facility] Comment on above: Performed By: #### C BC #### [facility] [address] [place] [address] Noelrenato Lebron PROF 14(COMP METB)on 019 Albumin [Mass/Vol] 3.9 g/dL Normal 3.5-5.0 [facility] Comment on above: Performed By: #### C MP #### [facility] [address] [place] [address] Noel Vi Albumin/Globulin [Mass ratio] 1.2 {ratio} Normal [facility] Comment on above: Performed By: #### C MP #### [facility] [address] [place] [address] Noel Iv ALP [Catalytic activity/Vol] 62 U/L Normal 38-126 [facility] Comment on above: Performed By: #### C MP #### [facility] [address] [place] [address] Noel Vi ALT [Catalytic activity/Vol] 11 U/L Normal 9-52 [facility] Comment on above: Performed By: #### C MP #### [facility] [address] [place] [address] Noel Vi Anion gap [Moles/Vol] 12.9 mmol/L Normal [facility] Comment on above: Performed By: #### C MP #### [facility] [address] [place] [address] Noel Vi AST [Catalytic activity/Vol] 13 U/L Critically low 14-36 [facility] Comment on above: Performed By: #### C MP #### [facility] [address] [place] [address] Noel Vi Bilirubin Ql (U) 0.9 mg/dL Normal 0.2-1.3 [facility] Comment on above: Performed By: #### C MP #### [facility] [address] [place] [address] Noel Vi Calcium [Mass/Vol] 9.4 mg/dL Normal 8.4-10.2 [facility] Comment on above: Performed By: #### C MP #### [facility] [address] [place] [address] Noel Vi Chloride [Moles/Vol] 105 mmol/L Normal 98-107 [facility] Comment on above: Performed By: #### C MP #### [facility] [address] [place] [address] Noel Vi CO2 [Moles/Vol] 28.5 mmol/L Normal 22.0-30.0 [facility] Comment on above: Performed By: #### C MP #### [facility] [address] [place] [address] Noel Vi Creatinine [Mass/Vol] 0.67 mg/dL Normal 0.52-1.04 [facility] Comment on above: Performed By: #### C MP #### [facility] [address] [place], [place] [phone] Noel Vi EGFR-AF PAPUA [place] >60 Normal >=60 [facility] Comment on above: Performed By: #### C MP #### [facility] [address] [place] [address] Noel Vi EGFR-NON AF PAP[place] >60 Normal >=60 [facility] Comment on above: Performed By: #### C MP #### [facility] [address] [place], [place] [address] Noel Vi Globulin (S) [Mass/Vol] 3.2 g/dL Normal [facility] Comment on above: Performed By: #### C MP #### [facility] [address] [place], [place] [address] Noel Vi Glucose [Mass/Vol] 125 mg/dL Critically high 74-106 [facility] Comment on above: Performed By: #### C MP #### [facility] [address] [place], [place] [address] Noel Vi Potassium [Moles/Vol] 4.4 mmol/L Normal 3.4-5.0 [facility] Comment on above: Performed By: #### C MP #### [facility] [address] [place] [id number] Noel Vi Protein [Mass/Vol] 7.1 g/dL Normal 6.1-8.2 [facility] Comment on above: Performed By: #### C MP #### [facility] [address] [place], [place] [address] Noel Vi Sodium [Moles/Vol] 142 mmol/L Normal 137-145 [facility] Comment on above: Performed By: #### C MP #### [facility] [address] [place], [place] [address] Noel Vi Urea nitrogen [Mass/Vol] 18.0 mg/dL Critically high 7.0-17.0 [facility] Comment on above: Performed By: #### C MP #### [facility] [address] [place], [place] [address] Noel Vi Urea nitrogen/Creatinine [Mass ratio] 26.9 mg/mg Normal [facility] Comment on above: Performed By: #### C MP #### [facility] [address] [place], [place] [address] Noel Vi T4on 02-19-2019 T4 [Mass/Vol] 5.40 ug/dL Critically low 5.53-11.00 [facility] Comment on above: Performed By: #### T 4, TSH #### [facility] [address] [place], [place] [address] Noel Lebron TSHon 02-19-2019 TSH Qn SEE BELOW Normal [facility] Comment on above: Result Comment: <0.3 4 UIU/ml HYPERTHYROID 0.34-5.60 UIU/ml EUTHYROID >5.60 UIU/ml HYPOTHYROID Performed By: #### T 4, TSH #### [facility] [address] [place], [place] [address] Noel Lebron TSH Qn 1.904 uIU/mL Normal 0.470-4.680 [facility] Comment on above: Performed By: #### T 4, TSH #### [facility] [address] [place], [place] [address] Noel Lebron Vital Signs Date Time Vital Sign Value Performing Clinician Facility 07-26-2024 15:12-0500 Body height 165.1 cm [facility] 07-26-2024 15:12-0500 Body mass index (BMI) [Ratio] 20.9 kg/m2 [facility] 07-26-2024 15:12-0500 Body weight 57.26 kg [facility] 07-26-2024 15:12-0500 Diastolic blood pressure 94 mm[Hg] [facility] 07-26-2024 15:12-0500 Heart rate 94 /min [facility] 07-26-2024 15:12-0500 Systolic blood pressure 143 mm[Hg] [facility] 05-14-2024 10:21-0500 Body height 165.1 cm [facility] 05-14-2024 10:21-0500 Body mass index (BMI) [Ratio] 21.4 kg/m2 [facility] 05-14-2024 10:21-0500 Body temperature 96.4 [degF] [facility] 05-14-2024 10:21-0500 Body weight 58.28 kg [facility] 05-14-2024 10:21-0500 Diastolic blood pressure 78 mm[Hg] [facility] 05-14-2024 10:21-0500 Heart rate 86 /min [facility] 05-14-2024 10:21-0500 SaO2% (BldA) [Mass fraction] 98 % [facility] 05-14-2024 10:21-0500 Systolic blood pressure 144 mm[Hg] [facility] 07-24-2023 10:00-0500 Body height 165.1 cm Phuong Deng Other [employer] Other 07-24-2023 10:00-0500 Body mass index (BMI) [Ratio] 22.23 kg/m2 Phuong Deng Other [employer] Other 07-24-2023 10:00-0500 Body weight 60.6 kg Phuong Deng Other [facility] Other 07-24-2023 10:00-0500 Diastolic blood pressure 81 mm[Hg] Phuong Deng Other [facility] Other 07-24-2023 10:00-0500 Systolic blood pressure 128 mm[Hg] Phuong Deng Other [facility] Other 05-07-2021 10:00-0500 Body height 165.1 cm Edwin James Other [facility] Other 05-07-2021 10:00-0500 Body mass index (BMI) [Ratio] 22.3 kg/m2 Edwin James Other [facility] Other 05-07-2021 10:00-0500 Body weight 60.78 kg Edwin James Other [facility] Other 03-20-2021 16:30-0400 Body height 165.1 cm Edwin James Other [employer] Other 03-20-2021 16:30-0400 Body mass index (BMI) [Ratio] 21.63 kg/m2 Edwin James Other [employer] Other 03-20-2021 16:30-0400 Body weight 58.97 kg Edwin James Other [employer] Other Encounters Encounter Date Encounter Type Care Provider Facility Start: 07-26-2024 End: 07-26-2024 ambulatory [facility] [place] [facility] Work Phone: Start: 07-26-2024 End: 07-26-2024 Patient encounter procedure [facility] Work Phone: Start: 05-14-2024 End: 05-14-2024 Patient encounter procedure [facility]ician [facility] Work Phone: Start: 07-28-2023 End: 07-28-2023 ambulatory Phuong Deng Other [employer] Other Start: 07-28-2023 Telephone encounter Phuong Deng [facility] Start: 07-24-2023 End: 07-24-2023 ambulatory Phuong Deng Other [employer] Other Start: 07-24-2023 Patient encounter procedure Phuong Deng [facility] Start: 09-30-2022 End: 09-30-2022 ambulatory Phuong Deng Other [employer] Other Start: 09-30-2022 Telephone encounter Phuong Deng [facility] Start: 07-04-2022 End: 07-04-2022 ambulatory Phuong Deng Other [employer] Other Start: 07-04-2022 Telephone encounter Phuong Deng [facility] Start: 03-05-2022 Adult health examination Phuong Deng Other [employer] Other Start: 10-22-2021 End: 10-22-2021 Patient encounter procedure PHUONG GIOVANNI [facility] Start: 06-18-2021 End: 06-18-2021 ambulatory Edwin James Other [employer] Other Start: 06-18-2021 Telephone encounter Edwin Graham [facility] Start: 05-07-2021 End: 05-07-2021 ambulatory Edwin James Other [employer] Other Start: 05-07-2021 Office outpatient visit 15 minutes dEwin James [facility] Start: 03-20-2021 Office outpatient visit 15 minutes Edwin James [facility] Start: 02-19-2019 End: 02-20-2019 Patient encounter procedure [facility] Facility: Procedures Date Procedure Procedure Detail Performing Clinician Start: 12-21-2019 Cataract extraction and insertion of intraocular lens PHUONG DENG Start: 11-30-2019 Cataract extraction and insertion of intraocular lens PHUONG GIOVANNI Screening for malign ant neoplasm of breast Phuong Deng Other Plan of Treatment Date Care Activity Detail Author DXA Skeletal system. axial Views for bone density [facility] enter MG Breast - bilateral Screening [facility] Immunizations Immunization Date Immunization Notes Care Provider Kimberlee river 08-09-2020 COVID-19 mRNA, Comirnaty (Pfizer) [facility] 07-19-2020 COVID-19 Vaccine Pfi zer - Documentation Purposes Only Edwin Moralesormack Other [facility] Payers Date Payer Category Payer Private Health Insurance [id number] 1960 Unknown [id number] [place] [facility] [id number] Medicare [id number] Medicare Medicare [id number] Unknown MMO [id number] Social History Date Type Detail Facility Tobacco smoking status [facility] Other Sex Assigned At Female [facility] Other Start: 01-30-2021 Tobacco smoking stat [facility] Smoker (finding) [facility] Start: 07-26-2024 Sex Female (finding) [facility] Start: 1960 Sex Assigned At Female [facility] Medical Equipment Procedure Code Equipment Code Equipment Origin al Text Equipment Identifier Dates [id number] Start: 11-30-2019 End: 12-21-2019 Evaluation note 05-14-2024 Note Date & Type Note Facility 05-14-2024 Evaluation note Diagnosis Onset Date Resolution Cough acute May 14, 2024 10:16am Maxillary sinusitis acute Novem 2023 10:16am Autoimmune thyroiditis acute Fe 2024 3:05pm Menopause acute July 26, 2024 3:05pm Screening mammogram for breast cancer acute July 26 3:05pm [facility] Work Phone: Evaluation note 07-28-2023 Note Date & Type Note Facility 07-28-2023 Evaluation note Encounter Date Diagnosis Assessment Notes Jul, Acquired hypothyroidism (ICD-10 - E03.9) [facility] Other Evaluation note 07-24-2023 Note Date & Type Note Facility 07-24-2023 Evaluation note Encounter Date Diagnosis Assessment Notes Jul, Medicare annual wellness visit, subsequent (ICD-10 - Z00.00) Personalized health advice was given to the beneficiary including a written plan for screenings discussed and provided. Advanced care planning reviewed and/or information given as requested. Additional counseling was provided here today in regards to, [ ]. The above visit was performed by [ ], under direct supervision of [ ]. Document reviewed and amended by provider signed below. Jul, Acquired hypothyroidism (ICD-10 - E03.9) Asymptomatic at this time, Denies any unexplained weight change, hair loss or fatigue. Patient to continue with above medication and we will continue to monitor through routine blood work Jul, Screening mammogram, encounter for (ICD-10 - Z12.31) [facility] Other Evaluation note 06-18-2021 Note Date & Type Note Facility 06-18-2021 Evaluation note Encounter Date Diagnosis Assessment Notes Jun, Achalasia (ICD-10 - K22.0) [facility] Other Evaluation note 05-07-2021 Note Date & Type Note Facility 05-07-2021 Evaluation note Encounter Date Diagnosis Assessment Notes Apr, Achalasia (ICD-10 - K22.0) WILL INCRESE THE BUSPAR TO 10 MG TWICE A DAY [facility] Other Evaluation note 03-20-2021 Note Date & Type Note Facility 03-20-2021 Evaluation note Encounter Date Diagnosis Assessment Notes Mar, Achalasia (ICD-10 - K22.0) Achalasia material was printed CAN START MEDICATION AT THIS TIME. [facility] Other Evaluation + Plan note Note Date & Type Note Facility Evaluation + Plan note No data available for this section [facility] Evaluation note Note Date & Type Note Facility Evaluation note No Information [facility] Other History general Narrative - Reported Note Date & Type Note Facility History general Narrative - Reported Type Surgical History c-sections Surgical History stomach sphincter [facility] Other Hospital Discharge instructions Note Date & Type Note Facility Hospital Discharge instructions No data available for this section [facility] Summary Purpose Family History Relationship Condition Age at Onset Recorded Date/T clarice father Myocardial infarction Unknown Cerebrovascular accident (CVA) Unknown Advance Directives Advance Directive Response Recorded Date/ Time Advance Directives No January 26, 2021 7:55am Chief Complaint and Reason for Visit Chief Complaint Admit Date productive cough May 14, 2024 10:16am Wellness July 26, 2024 3:05pm Reason for Visit Admit Date Cough May 14, 2024 10:16am Maxillary sinusitis May 14, 2024 10:16am Autoimmune thyroiditis July 26 3:05pm Menopause July 26, 2024 3:05pm Screening mammogram for breast cancer Fe bruary 2024 3:05pm Additional Source Comments INFORMATION SOURCE (unrecogn ized section and content) DATE CREATED AUTHOR 02/26/2019 [facility] DATE CREATED AUTHOR AUTHOR'S ORGANIZ ATION 07/09/2021 [facility] DATE CREATED AUTHOR AUTHOR'S ORGANIZ ATION 11/03/[address] [facility] REASON FOR VISIT (unrecogniz ed section and content) PATIENT HERE FOR FOLLOW UP T O ACHALASIA. PATIENT WAS TO HAVE EGD AND GASTRIC EMPTYING STUDY.PATIENT HERE FOR 6 WEEK FOLLOW UP TO ACHALASIA. PATIENT WAS TO START BUSPAR.medicationNo InformationNo InformationWellness[facility] Care Teams (unrecognized sec tion and content) Team Status: Active Member Role Status Dates Phuong Deng MD Primary Care Provider Active Team Status: Inactive Member Role Status Dates Phuong Deng MD Primary Care Provider Active Start: May 14, 2024 End: May 14, 2024 Pebbles Andrew APRN [employer] Attending Provider Active Start: April End: May 14, 2024 Team Status: Inactive Member Role Status Dates Phuong Deng MD Primary Care Provide r, Attending Provider Active Start: July 26, 2024 End: July 26, 2024 Goals (unrecognized section and content) Goals may be documented in a n alternate section FOR RECORDS PERTAINING TO PATIENTS WHO ARE OR HAVE BEEN ENROLLED IN A CHEMICAL DEPENDENCY/SUBSTANCEABUSE PROGRAM, SOME INFORMATION MAY BE OMITTED. This clinical summary was aggregated from multiple sources. Caution should be exercised in using it in the provision of clinical care. This summary normalizes information from multiple sources, and as a consequence, information in this document may materially change the coding, format and clinical context of patient data. In addition, data may be omitted in some cases. CLINICAL DECISIONS SHOULD BE BASED ON THE PRIMARY CLINICAL RECORDS. [facility] [employer]. provides no warranty or guarantee of the accuracy or completeness of information in this document.
[2024-08-20 12:34] LABS: Free T4 1.16 ng/dL (0.76-1.46)
[2024-08-20 12:37] LABS: Thyroid Stimulating Hormone 0.369 uIU/mL (0.358-3.740)
== END 2024-08-20 11:32 | disposition home or self-care (01) ==
PROVIDERS: PCP Family Medicine; Visit Provider Family Medicine
DX: E06.3 Autoimmune thyroiditis (principal)
CPT/HCPCS: 36415; 84439; 84443

== ENCOUNTER 2024-09-07 07:54 | Outpatient (OUT) | payer MEDICARE, SELFPAY ==
--- OUTSIDE RECORDS SUMMARY | 2024-09-07 07:58 | XMS_ITS | CCD ---
Author Organization [facility] Care Team Providers Care Power System Operator Name Role Phone LANDY, ANYI Admitting Unavailable HOUSE, ANYI Attending Unavailable HOUSE, ANYI Primary Care Unavailable HOUSE, ANYI Consulting Unavailable PHUONG DENG Primary Care Physician [phone] Edwin James Unavailable Phuong Deng Unavailable Medications [...] Start: 03-20-2021 take 2 tablets by mo [facility] twice daily busPIRone HCl 5 MG 2 tablets Oral two times daily for 0 days *Pick strength-form from Aleth for eRX* May, Active Start: 03-20-2021 take [...] daily on an empty stomach *Reorder from [employer]ItRideIt for eRx and Interaction Alerts* May, Active [...] ) Start: 09-30-2022 take 1 capsule by [facility] every twenty-four hours Temazepam 15 MG 1 [...] Range Facility Coding Summary.on 11-01-2021 Coding Summary. [id number] LMp2eOx+PGhlYWQ+PE1 QICPyI85fdNUktC6LS1 wHIE8ZCPIAOBWDXZ7FF E9jyZG5JYjlF2CpnyZa UkbqrQDfFJ83GSm8BYE 1sWdaTAzxtA7roVOuF4 h3QkKzBH73aF45IFmyJ OOcEpF6CxGhzzuokFYk C9ieFoBcnHZePuc+PHR hYmxlIHdpZHRoPScxMD HuMmViyYktFJ4vTz7pA GVyLWNvbGxhcHNlOiBj l7goGDUnSIqtWM7mkMy rY1QmgPN8OTIit1o3Tm 48dHI+BNAhAVL2eCymV Dymi803PpDxz1blLWH9 mASsMTboPPA6N54wf5V 6IZSxLTUfHDE9iGQ3cL 3phAsfiafeO4PaxKYcK uR6KQA4uDEowT8wmOtp qpaozR6gQtq+T71QWU0 JBKJYYB2UIrm7O9LnMw wvdHI+ZV24SOExYW48i PGcoJFhv7fucYp7OiJv ZGGdERF8nNvjNRylg6M xIWAfK82tuVNji1X5XG ZzbLbntAXiTtZdrLE1h S1oLLbaidetk6eudmuq Vynaz0hdsr89dX34B48 eXOmqUQYpLHI9OGJfAT LanWwxcm6hdY7hHv1+I Fjmn6bmb8andYr3ObHf ZEEbdpJocQjjJHS9x9J cAc74J0IkkAwic5DoEk j1lp77sEKuu9R1pSV3N EclOUSyvT1mPHlrIpI0 ACTcWfFrqV07lXDaATp vDl3drYvwgNlnAQ8lSH IftjfkSKRavS9hHCHve TUyuXbtAI2zQLRntxgq i791XvWvQPX7XTEugOQ kH1VruU7pAdYnQKOwWU UcH2IosQVyTRcwS323D NpgUwX0RGXexdZbZ6Jb MYNfmXnmTcZ8u2T2Da1 Wg1VugvysMID3XGkuFW I1EcA0VfRxFzS3Y1NdI oe6XCLhlGcbWY2yV9No HBMilelmzkhfxAG0SZS nKIVpoC27sUTmGOjkRb 4ct8U0o189ZWGgFDDeq C00Nb1fsYweEQUzpYXL zY6qihffe2wtdebpYvI yDRDiFKv7CBa3AKZkeI rvFuPnOVD7PdH4WLC9n GJbfV0rmUiqznbbnG2u Oyc+F32orC0oRUG0XCD 4zfqaRXBpzhMeKR20BM 72D3RkFbaayBBimUM+P BLkjgBqqUflPJ1jGkLh c7dec4RiGUeiM9VvSND jWHvxPru0FNOtGOL9fI K6vO4pOKWiOOvif6W3w AH4Y3TsrfQjtq5mo5pb BOIxLTjrV46ysFPes3S 8QQIxbLU0LVYywOmqYi ZuiB01Nhf+PGNvbGdyb 6HyOykbu0bze8eocNe1 IjMwJSIgdmFsaWduPSJ 1r9YqEq54F91cRRmaPC RoPSIxNSUiIHZhbGlnb q6upM5nUh7+PGNvbCB3 uWU8qV1zKHQrDxG0CEx vG858TuOqxMDtVzkgp2 ocf9xgqUb3XhNgWUIwc eLwkHbkAJA8q0EvKz46 I25hKVdsNDAdWBQbOVD xRQEgxGzvva5fyI6iKv 8+RP9vi8mlag03pW81g HI+LBYvFOD1kWeeEEec MCNcuJ0sTRinUcF4JHR rNvYsrR76zDHkQXleBd 9piPbgsWcoDC1rUXAqh aiml581ToUam4quIPPj mBKhGNhgGDM5V88zc7S 8CEXrOMUcYDV9dMB5yU 1hbGlnbjogbGVmdDsgd yQvnFxhAAhnJDoyS291 IHRvcDsnPlBhdGllbnQ fRxCkQUk1Z1WsBjf1FI RddZdfGG7loANtRJdtW p7fqTxziHemMO7yFZBy oxdsw826PkGaf2puQRV iyWRfRKrvWYD8C42la6 A2OERpAJRqPHN6wTS4q J8yhDkfzfdhiAJhpWrq jtHrtTigMGqoQTzrP71 6IHRvcDsnPkJpcnRoIE PvaYP2GY05BL68dIZsd 4K6qSO9C7WqCCIhmbum yfpteYD7UUFiLIWrfK6 2Or6iiBlzXp5zDXUlOE P3JPWveMAkC7JywY7jG pAyJOAzWKZbN6CvmEKm WDvrZ758UZzgCtC0WJH kpwGgZ0EbFKFjjDfeZu S1k8R4Qx8LI1E8LP76X H69vELde8O1yPH2A9Ch VUHhfdwvpukdmIU1MWX bRGRqjX78Gg2hnXkuBf 8xLUNhWAK1VKFnyWOxE 4CpdJ8bYgMuEHCjWMQb L4NrnMCpIDhpG393JXy zYoU9FESjlrLcW1GqVA YtcTcxWhN2d6Z8Uo5WF Ju8UI17AB55sAYrw2Z7 gLW8X5DoJUVvaonuzjj ohYJ7HIYsOFLuhJ13Ie 9yoEdiTo7iFEOrRQQ9T VAzsWPtO6RnuQ9sOiHo SODwAEVxQ2DlpVArUIe kP076EHabLkB3NNNwte OjM8FfWMDvvRxqHxX9c 3U9Yu4TOLDfUD95TXN6 jOD7PR71PO08U0HxRiv vdGFibGU+PHRhYmxlIH dpZHRoPScxMDAlJyBzd YjlHV0bBg7dGHUjKTJo yHnltLTaHoToe8drVXG gLPudPN7cxVaxX5QasO U5AMQpa6z2Hn02Y68cN 3JvdXA+VIQndXI7gVI6 vD6hJqFbIjU6OPfwP85 6LjDidTCnVsqpm0ote0 poeFc8DeY9PKExbfXvj LizCTF9u4KdOd13I15d IHdpZHRoPSIxNSUiIHZ gkVgprp3uvI3kJw0+PG HzsTK7cBZ0oN0iEiXoV rE1LFwkB322GmXtsYIp Ewueq4fdt4hktKc6EmH yXEIzrgBgeTmyUET7t7 XaAw33E9FlyAdlu3ZnS rt8nw99qBGjn3Y3dTX9 P0ZzDQLhgkbbhKTvgPt mDV9zKWRduclnZCNpxN 7iFHGlM0z8YfPdZbV6M LygF7NurrP2LXFntOTe HMfxVVO9L81vh6Z0OJT bHQXlQYE1tZV9yL1nvO lnbjogbGVmdDsgdmVyd IhnVGlrCBgfD163XZAy pSaiFAVkdE9xBNYmrEV jaTiiLP2bWRWuzfjjBy JMX4lQGnzcF5LQKMj8P 0PmUme1UKLoeJbyXC1k zAKhYLynTs2isBoaqMe pJE8rAKCwppglFIHldJ 9xTSEcqKBkeGniZC6aI FBnlibdu813HpGuQLC8 WQNfhUTuW0PpuR0rMiG sCRVzRIEwM2DpjKAfIZ qaU784SDfxTlF0MFWtm bMqQ4AlYUOnaJjtIqM4 h3L5Zn2pXG6gKB3cASX 8OK77SL93rBTou8E1zY D1Z4RoLAOrbxmqlpvzu KJ3QUJaVZZbiS07sCJj CXfxPa5xh9E4c330QVX wDCPgvC23Hw3xqHnlGH HqsUCAbC9vwyvrr4fiw xpxDaHwLDQdSGk4GWz5 ZTWnhTbhHxSvWKG9CnR 9NIG7mTUwlS1gkJfyra pqeA5uYjs+NjMgWWVhc iR7Q1XzJoi5AFSweMvz WJ2heSFtVRmoJz4vgMl ouLxfIQ8lWJNskvwyZD RwyS9qPJHrbJQuaEhwM G5fTMUfdoswp999MpFg LDO2XJNtyQDuS1XgdO5 uKiCyQMRxBDNcY9SzsD PoMTryD249FVetJrW2T ACrjdOjG7QdAYUftZvu HcV6o0S2Qz7OTB2jrNL 6J8GsOnh1IRQdvJyrPF 5noHZqTEenGl1hkQloa QyfOX9iEASersfaAWFj qH6oOSMmfBFekNwkZB5 nNHEgdrsue567CePnOM R2XXSeoQHzR6SeqP4bL uWiIVVeIZKhC7ZpfXLk AKajY872FHmzWbP4LIS aiqTzM9EgWPPkhKmsLf G7b3M0Lo6TyBEbMCSyG H25AF73AJ99I8UkUtdi dGFibGU+PHRhYmxlIHd pZHRoPScxMDAlJyBzdH pcIY0bWm4xCZBhBMGth UjssNJeRdHpk4qxSQMa GMawVY4jaTrjL1SqzYL 6REYhw4e1Cp29E49tF0 JvdXA+XKUjmWP2cME0e M0uXrEiSeM6PArmA664 MtOzbDDkTgcme2ckk6w ntDi1SjPbVAHmcgPhnZ ixEZL2q8PhOz75J61lU HdpZHRoPSIyMCUiIHZh sFhsgx8xbK2yJk4+PGN qrAS2xJK1dV7mRkMuXs A8DTotU748QxXiqQYdX ncuC30mD4ThxPQ+PHRy Vbl6JFKhpOjcOW3coMX qMSxvWl6kIUX2MwSdMg FgRFmbL1WqXRQkomyfr mpyrSQ2MBKcRGOljV84 Jc9iuEohYg9oNEPgWBJ 9DSDbqELnG1UagO2oOn IfGRYzSJKtZ4PniOIlM PqfS905PPbpVeG5MTNc tiYvA7XzXRPpuTkbSkK 9v4D5Ck4FePcktVDyEZ 9dUbYgJWn4I6ZzVwk3C APxvUxjUY3ogJOtQIqf Yp9obCshpXuyBL6vSAO wrikao462FdBvg5ikID YwoHUxBLeuCLU4B58vc 9J8EXLgLBRzQXH9kII5 xQ6jsGufbxjhgCOucNv gdmVydGljYWwtYWxpZ2 19TXAbxXhuYmZHKdi4Q 9DbLjx8RCJlqDqyIN3z uHKfWJbxKc3rcIrjqCn mSK7wHGNwzwwvn471Ms Arh2azFTTvdQDnDLecT XN8Z31rx1O8TKHcKLAm BGA8aHN7gM7shSqguuz gbGVmdDsgdmVydGljYW xvMUzyD492IATwbZjpW i9PKkh3V3FtSbq0TGNe mAiaWR9uzNUuNFwoIx1 ldGouvRwhVW0tRXVzrn qyb225HyNsi6yvMBFqt ZOjCQutVGT5L87ix9B1 WPCnCBMbZZQ0hLT9wA9 hbGlnbjogbGVmdDsgdm KwbRgtBXxgVHctS950E HRvcDsnPlBheWVyOjwv dGQ+YV77mf50B4FgUwr zRtq6TUWySQF7fKN0mE 3gAKBnHJikd8H5sQD4O 0RkbdZleh5fv9kkCCAa ZTog (more content not included)... Normal [facility] MA Mamm Screen w/CAD if perf [...] very important to your health. The current [employer] and [employer] Comprehensive Cancer [...] Tobias Dolan M.D. Transcribed by: KENNY Technologist: [facility] Assessment: BI-RADS Category 1-Negative Recommendation: Normal interval follow-up Normal [facility] Auto Diffon 10-22-2021 Basophils/100 WBC (Bld) 1.2 % Normal 0.0-2.0 [facility] Comment on above: Order Comment: Order Added by Discern Expert. Performed By: #### 2 209518, 6307263, 8950765, 0643870, 5063012, 9933136, 14858079 #### [facility] [address] [place] [address] Basophils/Leukocytes Auto (Bld) [Pure # fraction] 0.1 E9/L Normal 0.0-0.2 [facility] Comment on above: Order Comment: Order Added by Discern Expert. Performed By: #### 2 151494, 1238419, 8564579, 1988844, 3860875, 1194839, 82778409 #### [facility] [address] [place] [address] 228[address] Eosinophils/100 WBC (Bld) 7.1 % Normal 0.0-8.0 [facility] Comment on above: Order Comment: Order Added by David Expert. Performed By: #### 2 025405, 8220207, 8545941, 5493150, 4327071, 7960587, 13818904 #### [facility] [address] [place] [address] 61006 Eosinophils/Leukocyte s Auto (Bld) [Pure # fraction] 0.5 E9/L Normal 0.0-0.5 [facility] Comment on above: Order Comment: Order Added by Discern Expert. Performed By: #### 2 403256, 5226137, 2480684, 0315756, 8520752, 0610974, 20157955 #### [facility] [address] [place] [address] 10281 Lymphocytes/100 WBC (Bld) 28.0 % Normal 14.0-50.0 [facility] Comment on above: Order Comment: Order Added by Discern Expert. Performed By: #### 2 179193, 9455584, 4275164, 9788564, 0992463, 5695606, 41972326 #### [facility] [address] [place] [address] 98053 Lymphocytes/Leukocyte s Auto (Bld) [Pure # fraction] 1.8 E9/L Normal 1.0-4.0 [facility] Comment on above: Order Comment: Order Added by Discern Expert. Performed By: #### 2 696171, 8735203, 8597098, 4598144, 5241750, 9564832, 75487945 #### [facility] [address] [place] [address] Monocytes/100 WBC (Bld) 9.0 % Normal 4.0-14.0 [facility] Comment on above: Order Comment: Order Added by Discern Expert. Performed By: #### 2 406150, 3168290, 3994199, 5535762, 1619788, 9546524, 11135326 #### [facility] [address] [place] [address] 00933 Monocytes/Leukocytes Auto (Bld) [Pure # fraction] 0.6 E9/L Normal 0.2-1.0 [facility] Comment on above: Order Comment: Order Added by Discern Expert. Performed By: #### 2 689122, 7482599, 5807848, 0501983, 1578740, 1275795, 60976207 #### [facility] [address] [place] [address] 36170 Neutrophils/100 WBC (Bld) 54.7 % Normal 36.0-75.0 [facility] Comment on above: Order Comment: Order Added by Discern Expert. Performed By: #### 2 478918, 6631873, 4111637, 8256085, 8267177, 2386807, 72797956 #### [facility] [address] [place] [address] 85716 Neutrophils/Leukocyte s Auto (Bld) [Pure # fraction] 3.5 E9/L Normal 2.0-7.5 [facility] Comment on above: Order Comment: Order Added by Discern Expert. Performed By: #### 2 839246, 6650628, 2644889, 9122147, 9385605, 7623958, 00901475 #### [facility] [address] [place] [address] 05195 CBC w/ Auto Diffon 2 Erythrocyte distribution width (RBC) [Ratio] 13.8 % Normal 10.9-14.2 [facility] Comment on above: Performed By: #### 2 561880, 7929745, 5863679, 7638002, 2931391, 6407098, 83238076 #### [facility] [address] [place] [address] Hematocrit (Bld) [Volume fraction] 44.0 % Normal 34.0-46.0 [facility] Comment on above: Performed By: #### 2 625469, 7810298, 0813239, 3998464, 7675358, 6369759, 04759845 #### [facility] [address] [place] [address] Hemoglobin (Bld) [Mass/Vol] 15.2 g/dL Normal 12.0-16.0 [facility] Comment on above: Performed By: #### 2 262145, 9679701, 3929354, 8038033, 4670403, 9323199, 53905019 #### [facility] [address] [place] [address] MCH (RBC) [Entitic mass] 31.2 pg Normal 27.0-34.0 [facility] Comment on above: Performed By: #### 2 628375, 2899988, 4053434, 3848679, 0268263, 7880616, 03540347 #### [facility] [address] [place] [address] 533[address] MCHC (RBC) [Mass/Vol] 34.6 g/dL Normal 31.4-36.0 [facility] Comment on above: Performed By: #### 2 759450, 2167951, 2522930, 6731836, 1847368, 9167638, 58151714 #### [facility] [address] [place] [address] MCV (RBC) [Entitic vol] 90.2 fL Normal 80.0-100.0 [facility] Comment on above: Performed By: #### 2 580709, 6080339, 0176042, 7338706, 6411688, 1507896, 08381331 #### [facility] [address] [place] [address] Platelet mean volume (Bld) [Entitic vol] 9.2 fL Normal 6.4-10.8 [facility] Comment on above: Performed By: #### 2 282461, 5270502, 2577835, 2643612, 4499200, 3319862, 64273095 #### [facility] [address] [place] [address] Platelets (Bld) [#/Vol] 182.0 E9/L Normal 150.0-500.0 [facility] Comment on above: Performed By: #### 2 068281, 5445096, 6835482, 1210844, 1341867, 5887705, 66136157 #### [facility] [address] [place] [address] RBC (Bld) [#/Vol] 4.9 E12/L Normal 4.3-5.9 [facility] Comment on above: Performed By: #### 2 728578, 3670161, 3443105, 9788333, 6218006, 0129094, 31834302 #### [facility] [address] [place] [address] WBC corrected for nucl RBC Auto (Bld) [#/Vol] 6.4 E9/L Normal 4.0-11.0 [facility] Comment on above: Performed By: #### 2 600679, 9786658, 2282803, 6421914, 9471941, 6897993, 98607101 #### [facility] [address] [place] [address] CHEMISTRYOrdered By: SYSTEM SYSTEM on 10-22-2021 Albumin [...] 10-22-2021 Albumin [Mass/Vol] 4.1 g/dL Normal 3.3-5.0 [facility] Comment on above: Performed By: #### 2 324982, 4668611, 0008106, 9299314, 9967152, 4747952, 85747815 #### [facility] [address] [place] [address] Albumin/Globulin (S) [Mass conc ratio] 1.5 Normal 1.1-2.2 [facility] Comment on above: Performed By: #### 2 337966, 3799798, 0230977, 3147930, 6086653, 7656414, 38928134 #### [facility] [address] [place] [address] ALP [Catalytic activity/Vol] 55 Int._Unit/L Normal 21-98 [facility] Comment on above: Performed By: #### 2 393096, 0475157, 6625725, 7083834, 7457169, 7890192, 02554561 #### [facility] [address] [place] [address] ALT No additional P-5'-P [Catalytic activity/Vol] 15 Int._Unit/L Normal 6-46 [facility] Comment on above: Performed By: #### 2 250447, 4248965, 0106825, 1231739, 1001985, 9461543, 28049368 #### [facility] [address] [place] [address] Anion gap [Moles/Vol] 15 mmol/L Normal 6-16 [facility] Comment on above: Performed By: #### 2 525578, 4453896, 7909531, 9946320, 5712307, 3115008, 77502428 #### [facility] [address] [place] [address] AST [Catalytic activity/Vol] 17 Int._Unit/L Normal 5-43 [facility] Comment on above: Performed By: #### 2 913126, 5859874, 4297680, 8477822, 8267345, 0148503, 19899623 #### [facility] [address] [place] [address] Bilirubin [Mass/Vol] 1.3 mg/dL High 0.0-1.1 [facility] Comment on above: Performed By: #### 2 130502, 8569750, 3155372, 4397257, 0268227, 7552974, 10137444 #### [facility] [address] [place] [address] Calcium [Mass/Vol] 9.3 mg/dL Normal 8.9-11.1 [facility] Comment on above: Performed By: #### 2 934455, 2979066, 2232496, 7657482, 0982559, 6225331, 03527940 #### [facility] [address] [place] [address] Chloride [Moles/Vol] 103 mmol/L Normal 101-111 [facility] Comment on above: Performed By: #### 2 283659, 5753117, 5186070, 4312572, 7548921, 8697372, 48024576 #### [facility] [address] [place] [address] CO2 [Moles/Vol] 27 mmol/L Normal 21-31 [facility] Comment on above: Performed By: #### 2 940359, 1347506, 2764152, 8577250, 4761278, 9221312, 06850191 #### [facility] [address] [place] [address] Creatinine [Mass/Vol] 0.6 mg/dL Normal 0.5-1.3 [facility] Comment on above: Performed By: #### 2 596855, 8430089, 1706271, 7196383, 5681290, 0139569, 79063251 #### [facility] [address] [place] [address] Globulin (S) [Mass/Vol] 2.8 g/dL Normal 1.4-4.0 [facility] Comment on above: Performed By: #### 2 973536, 8594094, 0313201, 4858551, 1042742, 1985750, 68457103 #### [facility] [address] [place] [address] Glucose [Mass/Vol] 109 mg/dL Normal 55-199 [facility] Comment on above: Result Comment: If t his glucose result represents a fasting glucose, interpretation should refer to the following reference range: 55-99 mg/dL Performed By: #### 2 497413, 7747347, 4504550, 2052646, 5489079, 7580875, 76571138 #### [facility] [address] [place] [address] Potassium [Moles/Vol] 4.6 mmol/L Normal 3.5-5.3 [facility] Comment on above: Performed By: #### 2 421931, 8452269, 2678185, 9039128, 4586175, 1363158, 10195424 #### [facility] [address] [place] [address] Protein [Mass/Vol] 6.9 g/dL Normal 6.0-7.8 [facility] Comment on above: Performed By: #### 2 142131, 6433694, 5824570, 9832529, 6335116, 5366257, 76518733 #### [facility] [address] [place] [address] Sodium [Moles/Vol] 140 mmol/L Normal 135-145 [facility] Comment on above: Performed By: #### 2 503414, 0444077, 4335004, 4726534, 6620856, 4769151, 22623094 #### [facility] [address] [place] [address] Urea nitrogen [Mass/Vol] 15 mg/dL Normal 5-21 [facility] Comment on above: Performed By: #### 2 833095, 7865135, 3854960, 6749107, 5827500, 3773517, 17555001 #### [facility] [address] [place] [address] Urea nitrogen/Creatinine [Mass ratio] 25 No Units High 10-20 [facility] Comment on above: Performed By: #### 2 231023, 8969464, 0710763, 8812574, 8531546, 1691102, 49847378 #### [facility] [address] [place] [address] Consent for Treatmenton Consent for Treatment [id number] BB#[id number]:127 Normal [facility] Free T4on 10-22-2021 Free T4 [Mass/Vol] 0.93 ng/dL Normal 0.58-1.64 [facility] Comment on above: Performed By: #### 2 445561, 1813333, 9788515, 1077060, 2296530, 8917775, 96329170 #### [facility] [address] [place] [address] HEMATOLOGYOrdered By: SYSTEM SYSTEM on 10-22-2021 Basophils/100 [...] 4.9 E12/L Normal 4.3 - 5.9 E12/L [facility] WBC corrected for nucl RBC Auto (Bld) [#/Vol] 6.4 E9/L Normal 4.0 - 11.0 E9/L [facility] Lipid Panelon 10-22-2021 Cholesterol [Mass/Vol] 252 mg/dL High 120-200 [facility] Comment on above: Performed By: #### 2 485949, 3291488, 9818151, 9985930, 4697291, 4702094, 12566115 #### [facility] [address] [place] [address] Cholesterol in HDL [Mass/Vol] 134 mg/dL Invalid Interpretation Code [facility] Comment on above: Result Comment: HDL > or equal to 60 mg/dL: Low cardiovascular risk HDL < 40 mg/dL : High cardiovascular risk Performed By: #### 2 734456, 1470528, 2518634, 6984958, 5821912, 2922839, 50787257 #### [facility] [address] [place] [address] Cholesterol in LDL [Mass/Vol] 97 mg/dL Normal <=129 [facility] Comment on above: Performed By: #### 2 916653, 8841983, 1539533, 9722101, 1040218, 5032460, 35490020 #### [facility] [address] [place] [address] Cholesterol in VLDL [Mass/Vol] 11 mg/dL Normal 7-40 [facility] Comment on above: Performed By: #### 2 965372, 9061537, 1197741, 3579970, 3613936, 7664807, 42094582 #### [facility] [address] [place] [address] Triglyceride [Mass/Vol] 56 mg/dL Normal <=149 [facility] Comment on above: Performed By: #### 2 175316, 9282695, 2535767, 1734388, 0207232, 0834859, 49008370 #### [facility] [address] [place] [address] Physician Orderon 10-22-2021 Physician Order [id number] 247#[id number]:127 Normal [facility] TSHon 10-22-2021 TSH Qn 1.07 m[IU]/L Normal 0.34-5.60 [facility] Comment on above: Performed By: #### 2 [id number], [id number], [id number], [id number], 6443629, [id number], [id number] #### [facility] [address] [place] [address] eGFRon 10-22-2021 GFR/1.73 sq M.predicted among blacks MDRD (S/P/Bld) [Vol rate/Area] mL/min/{1.73_m2} Normal >=59 [facility] Comment on above: Order Comment: Order added by Discern Expert. Result Comment: eGFR is race adjusted. AA=. Performed By: #### 2 [id number], [id number], 8532013, [id number], [id number], [id number], [id number] #### [facility] [address] [place] [address] GFR/1.73 sq M.predicted among non-blacks MDRD (S/P/Bld) [Vol rate/Area] mL/min/{1.73_m2} Normal >=59 [facility] Comment on above: Order Comment: Order added by Discern Expert. Result Comment: [facility] Consultant beatrice kidney disease could be indicated at eGFR's of less than 60 mL/min/1.73m2. Kidney failure is indicated at less than 15 mL/min/1.73m2. Performed By: #### 2 [id number], [id number], [id number], 5038020, [id number], [id number], [id number] #### [facility] [address] [place] [address] FL esophagus ugion 1 [place] esophagus ugi [facility] Main [address] [address] Fluoroscopy Report Signed Patient: Gisele Chisholm MR#: [id number] : 1960 Acct:[id number] Age/Sex: 61 / F ADM Date: 03/13/21 [...] Hussein Pate M.D.03/13/2021 11:50 AM Dictation Location: [place] [address] Transcribed By: [facility] 03/13/21 1150 Dictated By: Hussein Pate DO 03/13/21 1143 Signed By: 03/13/21 1150 Normal [facility] NM gastric emptying studyon 02-23-2021 NM gastric emptying study [facility] [place] [address] Nuclear Medicine Report Signed Patient: Gisele Chisholm MR#: [id number] : 1960 Acct:[id number] Age/Sex: 60 / F ADM Date: 02/23/21 [...] right extending to the top of the [id number] that was imaged which contains radionuclide. There [...] Vi Chavez M.D.02/23/2021 11:06 AM Dictation Location: [place] [address] Transcribed By: [facility] 02/23/21 1106 Dictated By: Vi Chavez MD 02/23/21 1058 Signed By: 02/23/[address] [facility] CBC AUTO DIFFon 02-19-2019 Basophils (Bld) [#/Vol] 0.1 103/ul Normal 0.0-0.1 [facility] Comment on above: Performed By: #### C BC #### [facility] [address] [place], [place] [address] Noel Vi Basophils/100 WBC (Bld) 0.9 % Normal 0.2-2.0 [facility] Comment on above: Performed By: #### C BC #### [facility] [address] [place], [place] [address] Noel Vi Eosinophils (Bld) [#/Vol] 0.4 103/ul Normal 0.0-0.7 [facility] Comment on above: Performed By: #### C BC #### [facility] [address] [place], [place] [id number] Noel Vi Eosinophils/100 WBC (Bld) 5.5 % Normal 0.9-7.0 [facility] Comment on above: Performed By: #### C BC #### [facility] [address] [place], [place] [id number] Noel Vi Erythrocyte distribution width (RBC) [Ratio] 12.6 % Normal 11.0-15.0 [facility] Comment on above: Performed By: #### C BC #### [facility] [address] [place], [place] [id number] Noel Vi Hematocrit (Bld) [Volume fraction] 47.1 % Normal 36.0-48.0 [facility] Comment on above: Performed By: #### C BC #### [facility] [address] [place] [address] Noel Vi Hemoglobin (Bld) [Mass/Vol] 15.8 g/dL Normal 12.0-16.0 [facility] Comment on above: Performed By: #### C BC #### [facility] [address] [place], [place] [id number] Noel Vi IG # 0.01 10e3/ul Normal 0.00-0.03 [facility] Comment on above: Performed By: #### C BC #### [facility] [address] [place], [place] [id number] Noel Vi IG % 0.1 % Normal 0.0-0.5 [facility] Comment on above: Performed By: #### C BC #### [facility] [address] [place], [place] [id number] Noel Vi Lymphocytes (Bld) [#/Vol] 2.1 103/ul Normal 1.2-3.8 [facility] Comment on above: Performed By: #### C BC #### [facility] [address] [place], [place] [id number] Noel Vi Lymphocytes/100 WBC (Bld) 27.3 % Normal 20.5-60.0 [facility] Comment on above: Performed By: #### C BC #### [facility] [address] [place] [id number] Noel Lebron MANUAL DIFF REQ NO Normal [facility] Comment on above: Performed By: #### C BC #### [facility] [address] [place] [id number] Noelrenato Lebron MCH (RBC) [Entitic mass] 30.5 pg Normal 26.7-34.0 [facility] Comment on above: Performed By: #### C BC #### [facility] [address] [id number] Noelrenato Lebron MCHC (RBC) [Mass/Vol] 33.5 g/dL Normal 29.9-35.2 [facility] Comment on above: Performed By: #### C BC #### [facility] [address] [place], [place] [phone] Noelrenato Lebron MCV (RBC) [Entitic vol] 90.9 fL Normal 81.0-99.0 [facility] Comment on above: Performed By: #### C BC #### [facility] [address] [place], [place] [id number] Noel Vi Monocytes (Bld) [#/Vol] 0.6 103/ul Normal 0.3-0.8 [facility] Comment on above: Performed By: #### C BC #### [facility] [address] [place], [place] [id number] Noel Vi Monocytes/100 WBC (Bld) 7.5 % Normal 1.7-12.0 [facility] Comment on above: Performed By: #### C BC #### [facility] [address] [place], [place] [phone] Noel Vi Neutrophils (Bld) [#/Vol] 4.5 103/ul Normal 1.4-6.5 [facility] Comment on above: Performed By: #### C BC #### [facility] [address] [place], [place] [phone] Noel Vi Neutrophils/100 WBC (Bld) 58.7 % Normal 43.0-75.0 [facility] Comment on above: Performed By: #### C BC #### [facility] [address] [place], [place] [address] Noel Vi Platelet mean volume (Bld) [Entitic vol] 10.7 fL Normal 9.5-13.5 [facility] Comment on above: Performed By: #### C BC #### [facility] [address] [place], [place] [address] Noel Vi Platelets (Bld) [#/Vol] 176 103/ul Normal 150-450 [facility] Comment on above: Performed By: #### C BC #### [facility] [address] [place] [address] Noel Vi RBC (Bld) [#/Vol] 5.18 106/ul Normal 4.20-5.40 [facility] Comment on above: Performed By: #### C BC #### [facility] [address] [place] [address] Noel Vi WBC (Bld) [#/Vol] 7.6 103/ul Normal 4.0-11.0 [facility] Comment on above: Performed By: #### C BC #### [facility] [address] [place] [address] Noelrenato Lebron PROF 14(COMP METB)on 019 Albumin [Mass/Vol] 3.9 g/dL Normal 3.5-5.0 [facility] Comment on above: Performed By: #### C MP #### [facility] [address] [place] [address] Noel Vi Albumin/Globulin [Mass ratio] 1.2 {ratio} Normal [facility] Comment on above: Performed By: #### C MP #### [facility] [address] [place] [address] Noel Vi ALP [Catalytic activity/Vol] 62 U/L Normal 38-126 [facility] Comment on above: Performed By: #### C MP #### [facility] [address] [place] [address] Noel Vi ALT [Catalytic activity/Vol] 11 U/L Normal 9-52 [facility] Comment on above: Performed By: #### C MP #### [facility] [address] [address] Noel Vi Anion gap [Moles/Vol] 12.9 mmol/L Normal [facility] Comment on above: Performed By: #### C MP #### [facility] [address] [address] Noel Vi AST [Catalytic activity/Vol] 13 U/L Critically low 14-36 [facility] Comment on above: Performed By: #### C MP #### [facility] [address] [address] Noel Vi Bilirubin Ql (U) 0.9 mg/dL Normal 0.2-1.3 [facility] Comment on above: Performed By: #### C MP #### [facility] [address] [place] [address] Noel Vi Calcium [Mass/Vol] 9.4 mg/dL Normal 8.4-10.2 [facility] Comment on above: Performed By: #### C MP #### [facility] [address] [place] [address] Noel Vi Chloride [Moles/Vol] 105 mmol/L Normal 98-107 [facility] Comment on above: Performed By: #### C MP #### [facility] [address] [place] [address] Noel Vi CO2 [Moles/Vol] 28.5 mmol/L Normal 22.0-30.0 [facility] Comment on above: Performed By: #### C MP #### [facility] [address] [place] [address] Noel Vi Creatinine [Mass/Vol] 0.67 mg/dL Normal 0.52-1.04 [facility] Comment on above: Performed By: #### C MP #### [facility] [address] [place], [place] [phone] Noel Vi EGFR-AF TURKISH >60 Normal >=60 [facility] Comment on above: Performed By: #### C MP #### [facility] [address] [place] [address] Noel Vi EGFR-NON AF TURKISH >60 Normal >=60 [facility] Comment on above: Performed By: #### C MP #### [facility] [address] [place], [place] [address] Noel Vi Globulin (S) [Mass/Vol] 3.2 g/dL Normal [facility] Comment on above: Performed By: #### C MP #### [facility] [address] [place], [place] [address] Noel Vi Glucose [Mass/Vol] 125 mg/dL Critically high 74-106 [facility] Comment on above: Performed By: #### C MP #### [facility] [address] [place], [place] [address] Noel Vi Potassium [Moles/Vol] 4.4 mmol/L Normal 3.4-5.0 [facility] Comment on above: Performed By: #### C MP #### [facility] [address] [id number] Noel Vi Protein [Mass/Vol] 7.1 g/dL Normal 6.1-8.2 [facility] Comment on above: Performed By: #### C MP #### [facility] [address] [place], [place] [address] Noel Vi Sodium [Moles/Vol] 142 mmol/L Normal 137-145 [facility] Comment on above: Performed By: #### C MP #### [facility] [address] [place], [place] [address] Noel Vi Urea nitrogen [Mass/Vol] 18.0 mg/dL Critically high 7.0-17.0 [facility] Comment on above: Performed By: #### C MP #### [facility] [address] [place], [place] [address] Noel Vi Urea nitrogen/Creatinine [Mass ratio] 26.9 mg/mg Normal [facility] Comment on above: Performed By: #### C MP #### [facility] [address] [place], [place] [address] Noel Vi T4on 02-19-2019 T4 [Mass/Vol] 5.40 ug/dL Critically low 5.53-11.00 [facility] [place] Comment on above: Performed By: #### T 4, TSH #### [facility] [address] [place], [place] [address] Noel Lebron TSHon 02-19-2019 TSH Qn SEE BELOW Normal [facility] Comment on above: Result Comment: <0.3 4 UIU/ml HYPERTHYROID 0.34-5.60 UIU/ml EUTHYROID >5.60 UIU/ml HYPOTHYROID Performed By: #### T 4, TSH #### [facility] [address] [place], [place] [address] Noel Lebron TSH Qn 1.904 uIU/mL Normal 0.470-4.680 [facility] Comment on above: Performed By: #### T 4, TSH #### [facility] [address] [place], [place] [address] Noel Lebron Vital Signs Date Time Vital Sign Value Performing Clinician Facility 07-26-2024 15:12-0500 Body height 165.1 cm [facility] 07-26-2024 15:12-0500 Body mass index (BMI) [Ratio] 20.9 kg/m2 [facility] 07-26-2024 15:12-0500 Body weight 57.26 kg [facility] 07-26-2024 15:12-0500 Diastolic blood pressure 94 mm[Hg] [facility] 07-26-2024 15:12-0500 Heart rate 94 /min [facility] 07-26-2024 15:12-0500 Systolic blood pressure 143 mm[Hg] [facility] 05-14-2024 10:21-0500 Body height 165.1 cm [facility] 05-14-2024 10:21-0500 Body mass index (BMI) [Ratio] 21.4 kg/m2 [facility] 05-14-2024 10:21-0500 Body temperature 96.4 [degF] [facility] 05-14-2024 10:21-0500 Body weight 58.28 kg [facility] 05-14-2024 10:21-0500 Diastolic blood pressure 78 mm[Hg] [facility] 05-14-2024 10:21-0500 Heart rate 86 /min [facility] 05-14-2024 10:21-0500 SaO2% (BldA) [Mass fraction] 98 % [facility] 05-14-2024 10:21-0500 Systolic blood pressure 144 mm[Hg] [facility] 07-24-2023 10:00-0500 Body height 165.1 cm Phuong Deng Other [facility] Other 07-24-2023 10:00-0500 Body mass index (BMI) [Ratio] 22.23 kg/m2 Phuong Deng Other [facility] Other 07-24-2023 10:00-0500 Body weight 60.6 kg Phuong Deng Other [facility] Other 07-24-2023 10:00-0500 Diastolic blood pressure 81 mm[Hg] Phuong Deng Other [facility] Other 07-24-2023 10:00-0500 Systolic blood pressure 128 mm[Hg] Phuong Deng Other [facility] Other 05-07-2021 10:00-0500 Body height 165.1 cm Edwin James Other [facility] Other 05-07-2021 10:00-0500 Body mass index (BMI) [Ratio] 22.3 kg/m2 Edwin James Other [facility] Other 05-07-2021 10:00-0500 Body weight 60.78 kg Edwin James Other [facility] Other 03-20-2021 16:30-0400 Body height 165.1 cm Edwin James Other [facility] Other 03-20-2021 16:30-0400 Body mass index (BMI) [Ratio] 21.63 kg/m2 Edwin James Other [facility] Other 03-20-2021 16:30-0400 Body weight 58.97 kg Edwin James Other [facility] Other Encounters Encounter Date Encounter Type Care Provider Facility Start: 07-26-2024 End: 07-26-2024 ambulatory [facility] Work Phone: Start: 07-26-2024 End: 07-26-2024 Patient encounter procedure [facility] Work Phone: Start: 05-14-2024 End: 05-14-2024 Patient encounter procedure [facility] Work Phone: Start: 07-28-2023 End: 07-28-2023 ambulatory Phuong Deng Other [facility] Other Start: 07-28-2023 Telephone encounter Phuong Deng [facility] Start: 07-24-2023 End: 07-24-2023 ambulatory Phuong Deng Other [facility] Other Start: 07-24-2023 Patient encounter procedure Phuong Deng [facility] Start: 09-30-2022 End: 09-30-2022 ambulatory Phuong Deng Other [facility] Other Start: 09-30-2022 Telephone encounter Phuong Deng [facility] Start: 07-04-2022 End: 07-04-2022 ambulatory Phuong Deng Other [facility] Other Start: 07-04-2022 Telephone encounter Phuong Deng [facility] Start: 03-05-2022 Adult health examination Phuong Deng Other [facility] Other Start: 10-22-2021 End: 10-22-2021 Patient encounter procedure PHUONG GIOVANNI [facility] Start: 06-18-2021 End: 06-18-2021 ambulatory Edwin James Other [facility] Other Start: 06-18-2021 Telephone encounter Edwin Graham [facility] Start: 05-07-2021 End: 05-07-2021 ambulatory Edwin James Other [facility] Other Start: 05-07-2021 Office outpatient visit 15 minutes Edwin James [facility] Start: 03-20-2021 Office outpatient visit 15 minutes Edwin James [facility] Start: 02-19-2019 End: 02-20-2019 Patient encounter procedure [facility] Facility: Procedures Date Procedure Procedure Detail Performing Clinician Start: 12-21-2019 Cataract extraction and insertion of intraocular lens PHUONG DENG Start: 11-30-2019 Cataract extraction and insertion of intraocular lens PHUONG GIOVANNI Screening for malign ant neoplasm of breast Phuong Deng Other Plan of Treatment Date Care Activity Detail Author DXA Skeletal system. axial Views for bone density [facility] enter MG Breast - bilateral Screening [facility] Immunizations Immunization Date Immunization Notes Care Provider Kimberlee river 08-09-2020 COVID-19 mRNA, Comirnaty (Pfizer) [facility] 07-19-2020 COVID-19 Vaccine Pfi zer - Documentation Purposes Only Edwin Moralesormack Other [facility] Payers Date Payer Category Payer Private Health Insurance [id number] 1960 Unknown [id number] [place] [facility] [id number] Medicare [id number] Medicare Medicare [id number] Unknown MMO [id number] Social History Date Type Detail Facility Tobacco smoking status [facility] Other Sex Assigned At Female [facility] Other Start: 01-30-2021 Tobacco smoking stat [facility] Smoker (finding) [facility] Start: 07-26-2024 Sex Female (finding) [facility] Start: 1960 Sex Assigned At Female F [facility] Medical Equipment Procedure Code Equipment Code Equipment Origin al Text Equipment Identifier Dates [id number] [facility] Start: 11-30-2019 End: 12-21-2019 Evaluation note 05-14-2024 Note Date & Type Note Facility 05-14-2024 Evaluation note Diagnosis Onset Date Resolution Cough acute May 14, 2024 10:16am Maxillary sinusitis acute Novem 2023 10:16am Autoimmune thyroiditis acute Fe 2024 3:05pm Menopause acute July 26, 2024 3:05pm Screening mammogram for breast cancer acute July 26 3:05pm [facility] Work Phone: Evaluation note 07-28-2023 Note Date & Type Note Facility 07-28-2023 Evaluation note Encounter Date Diagnosis Assessment Notes Jul, Acquired hypothyroidism (ICD-10 - E03.9) [facility] [employer] Other Evaluation note 07-24-2023 Note Date & [...] Screening mammogram, encounter for (ICD-10 - Z12.31) [facility] Other Evaluation note 06-18-2021 Note Date & Type Note Facility 06-18-2021 Evaluation note Encounter Date Diagnosis Assessment Notes Jun, Achalasia (ICD-10 - K22.0) [facility] Other Evaluation note 05-07-2021 Note Date & Type Note Facility 05-07-2021 Evaluation note Encounter Date Diagnosis Assessment Notes Apr, Achalasia (ICD-10 - K22.0) WILL INCRESE THE BUSPAR TO 10 MG TWICE A DAY [facility] Other Evaluation note 03-20-2021 Note Date & Type Note Facility 03-20-2021 Evaluation note Encounter Date Diagnosis Assessment Notes Mar, Achalasia (ICD-10 - K22.0) Achalasia material was printed CAN START MEDICATION AT THIS TIME. [facility] Other Evaluation + Plan note Note Date & Type Note Facility Evaluation + Plan note No data available for this section [facility] Evaluation note Note Date & Type Note Facility Evaluation note No Information [facility] [employer] Other History general Narrative - Reported Note Date & Type Note Facility History general Narrative - Reported Type Surgical History c-sections Surgical History stomach sphincter [facility] Other Hospital Discharge instructions Note Date & Type Note Facility Hospital Discharge instructions No data available for this section [facility] Summary Purpose Family History Relationship Condition [...] DATE CREATED AUTHOR AUTHOR'S ORGANIZ ATION 07/09/2021 [facility] DATE CREATED AUTHOR AUTHOR'S ORGANIZ ATION 11/03/2021 [facility] REASON FOR VISIT (unrecogniz ed section and [...] End: May 14, 2024 Pebbles Andrew APRN [employer]-C Attending Provider Active Start: April End: May [...] BE BASED ON THE PRIMARY CLINICAL RECORDS. [facility] [employer] [facility] provides no warranty or guarantee of the accuracy or completeness of information in this document.
--- NOTE | 2024-09-07 08:03 | MM_ITS ---
Patient Name: TAMAR GILMAN MR#: [id number] : 1960 Exam Date: 09/07/2024 Ordering Doctor: DR Phuong Deng M.D. RADIOLOGY REPORT PROCEDURE: MM TOMOSYNTHESIS SCREENING BI COMPARISON: MG MAMM RASHAWN SCRN W CAD DIG, 09/28/2014. INDICATIONS: Screening Calculator Name NCI Breast Cancer Risk Assessment Tool 5 Year Breast Cancer Risk 2.10% Lifetime Breast Cancer Risk 7.50% Personal Breast Cancer No Personal Ovarian Cancer No Treatments None Family Cancers None LOCATION: [facility] BREAST COMPOSITION: The breasts are heterogeneously dense,which may obscure small masses. FINDINGS: DIAGNOSTIC CATEGORY 1--NEGATIVE. No benign calcifications. No vascular calcifications. No malignant calcifications. No architectural distortion or breast nodule. Normal axillary lymph nodes. No postsurgical changes. RECOMMENDATIONS: ROUTINE MAMMOGRAM AND CLINICAL EVALUATION IN 12 MONTHS. PLEASE NOTE: A NORMAL MAMMOGRAM DOES NOT EXCLUDE THE POSSIBILITY OF BREAST CANCER. A CLINICALLY SUSPICIOUS PALPABLE LUMP SHOULD BE BIOPSIED. Dictated by: Hussein Pate DO on 09/07/2024 at 12:14 Approved by: Hussein Pate DO on 09/07/2024 at 12:42
--- NOTE | 2024-09-07 08:15 | CT_ITS ---
The [address] [address] Patient Name: TAMAR GILMAN MRN: [id number] date: 1960 Sex: F Assigned Patient Location: CT Current Patient Location: CT Accession/Order Number: [id number] Exam Date: 09/07/2024 10:33 Report Date: 09/07/2024 10:38 At the request of: DON DAVILA MD Procedure: CT lung screening low-dose CT CHEST WITHOUT CONTRAST, LOW DOSE SCREENING: CLINICAL DATA: A 64-year old current smoker, smoking for 30 pack-years. COMPARISON: None TECHNIQUE: Noncontrast axial CT scan images of the chest were obtained under the low dose screening CT protocol. Coronal and sagittal reconstructed images were also submitted. FINDINGS: Mediastinum : Suboptimal evaluation due to low-dose technique. Thoracic aorta appears normal in caliber. Pulmonary trunk appears nondilated. No pericardial effusion. No lymphadenopathy. Dilated ascending esophagus with retained food present. Mild wall thickening. Lungs: No focal consolidation, pneumothorax or pleural effusion. Trachea and distal airways appear patent. Diffuse bronchial wall thickening. Mild lung scarring. No suspicious noncalcified pulmonary nodule or mass. Upper abdomen: No acute findings. Bony thorax and chest wall: Soft tissues surrounding the chest wall demonstrate no acute findings. Osseous structures demonstrate degenerative change. CT/CT lung screening low-dose IMPRESSION: NO SUSPICIOUS NONCALCIFIED LUNG NODULE OR MASS. DILATED ESOPHAGUS WITH WALL THICKENING AND RETAINED FOOD. CORRELATION WITH ENDOSCOPY IS SUGGESTED. LUNG - RADS Version 1.0 Assessment: Category 1, Negative (No nodules and definitely benign nodules). Management: Continue annual lung screening with LDCT in 12 months. Modifier: S Impression dictated by: Elan Mesa Jr. DDilipODilip09/07/2024 10:38 AM Dictation Location: [facility] Electronically authenticated by: [id number] Y Date: 09/07/2024 10:38
== END 2024-09-07 07:55 | disposition home or self-care (01) ==
LOC: CT 07:54
PROVIDERS: PCP Family Medicine; Visit Provider Family Medicine
DX: Z12.31 Encounter for screening mammogram for malignant neoplasm of breast (principal); F17.210 Nicotine dependence, cigarettes, uncomplicated; Z78.0 Asymptomatic menopausal state
CPT/HCPCS: 71271; 77063; 77067; 77080